=== PATIENT | male | born 1930 | race Caucasian/White ===

== ENCOUNTER 2018-04-10 19:37 | Inpatient (IN) | payer OTHER ==
[~2018-04-10] VITALS: Ht 188 cm; Wt 81.2 kg
--- NOTE | 2018-04-10 19:47 | ED GENERAL ADULT ---
History of Present Illness General Chief Complaint: Altered Mental Status Stated Complaint: ALTERED MENTAL STATUS Source: patient, family Exam Limitations: no limitations Vital Signs & Intake/Output Vital Signs & Intake/Output Vital Signs Date Time Temp Pulse Resp B/P B/P Pulse O2 O2 Flow FiO2 Mean Ox Delivery Rate 04/11 0857 98.3 80 20 108/58 98 Nasal 2.0L Cannula 04/11 0800 Nasal 2.0L Cannula 04/11 0413 Nasal 3.0L Cannula 04/11 0300 98.6 84 16 112/52 96 Nasal 2.0L Cannula 04/11 0057 98.3 84 16 110/53 96 Nasal 2.0L Cannula 04/11 0051 98.3 92 14 92/56 99 Nasal 2.0L Cannula 04/10 2340 98.1 04/10 2339 98.1 04/10 2229 105/60 04/10 2143 100.3 92 24 95/53 100 04/10 2051 101/55 04/10 2014 100.8 04/10 1941 100.8 119 22 106/65 90 ED Intake and Output 04/11 0000 04/10 1200 Intake Total 3100 Output Total Balance 3100 Intake, IV 3100 Patient 185 lb Weight Triage Nurses Notes Reviewed? yes Onset: Gradual Duration: week(s):, changing over time, continues in ED, getting worse Timing: recent history Injury Environment: home Severity: moderate, severe No Modifying Factors: none HPI: 87-year-old male history of atrial fibrillation, Parkinson's disease, presents for evaluation of altered mental status. According to the patient's son he has had a gradual decline in his physical and mental status. Over the past several months she has lost his ability to walk he spends most of his time in bed. He has become incontinent of urine and stool. He is also becoming gradually less responsive and has had a decrease in his ability to communicate. The son feels that currently the way he is behaving so he usually is. He spends most of his time sleeping and is very lethargic. He is not on blood thinners. He was brought in today because he developed a low-grade temp and seemed to be more lethargic than usual. Patient is lethargic and is unable to contribute much history but declines any pain. No recent surgery. 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 (Hank Durand) Allergies Coded Allergies: No Known Allergies (04/11/18) (Jered Munson DO) Past History Medical History Any Pertinent Medical History? see below for history Surgical History Surgical History: non-contributory Psychosocial History What is your primary language Kiswahili Family History Hx Contributory? No (Hank Durand) Review of Systems Review of Systems Constitutional: Reports: malaise, weakness. EENTM: Reports: no symptoms. Respiratory: Reports: no symptoms. Cardiovascular: Reports: no symptoms. GI: Reports: no symptoms. Genitourinary: Reports: no symptoms. Musculoskeletal: Reports: no symptoms. Skin: Reports: no symptoms. Neurological/Psychological: Reports: see HPI, weakness. Hematologic/Endocrine: Reports: no symptoms. Immunologic/Allergic: Reports: no symptoms. All Other Systems: Reviewed and Negative (Hank Durand) Physical Exam Physical Exam General Appearance: well developed/nourished, no apparent distress, alert, awake , lethargic Head: atraumatic, normal appearance Eyes: Bilateral: PERRL, EOMI, pale conjunctivae, other ([place] PUPILS ). Ears, Nose, Throat: normal pharynx, hearing grossly normal, DRY MUCOUS MEMBRANES Neck: normal inspection, supple, full range of motion Respiratory: normal breath sounds, chest non-tender, no respiratory distress, lungs clear Cardiovascular: normal peripheral pulses, tachycardia Peripheral Pulses: 2+ radial (R), 2+ radial (L) Gastrointestinal: normal bowel sounds, soft, non-tender, no organomegaly Rectal: tHERE IS AREAS OF ERYTHEMA AROUND THE GLUTEAL CLEFT. nO PRESSURE ULCERS OR OPEN SORES NO DISCHARGE OR FOCAL FLUCTUANT AREAS Back: normal inspection, normal range of motion Extremities: normal inspection, normal range of motion, no edema Neurologic/Psych: no motor/sensory deficits, awake, alert, PATIENT IS RESPONSIVE TO LOUD VERBAL STIMULI. hE IS ORIENTED TO PERSON ONLY Skin: intact, normal color, warm/dry Core Measures ACS in differential dx? No CVA/TIA Diagnosis: No Sepsis Present: No Sepsis Focused Exam Completed? No (Hank Durand) Progress Differential Diagnoses I considered the following diagnoses in my evaluation of the patient: [Sepsis, UTI, pneumonia, aspiration, dementia, dehydration, electrolyte abnormality, PE, malignancy] Plan of Care: Orders Procedure Date/time Status Nothing by Mouth 04/11 B Active PARTIAL THROMBOPLASTIN TIME 04/11 1900 Active BASIC ELECTROLYTES PLUS BUN&CR 04/11 1600 Active TROPONIN LEVEL 04/11 1200 Active EKG 04/11 1200 Active Change service to 04/11 0714 Active PARTIAL THROMBOPLASTIN TIME 04/11 0645 Complete CBC WITHOUT DIFFERENTIAL 04/11 0600 Complete BASIC ELECTROLYTES PLUS BUN&CR 04/11 0600 Complete Heparin Drip- AFIB/FLUTTER/PE/ 04/11 0541 Active ECHOCARDIOGRAM 04/11 0510 Active THYROID STIMULATING HORMONE 04/11 0500 Complete LIPID PANEL 04/11 0500 Complete Turn and Reposition 04/11 0439 Active Skin Integrity Protocol 04/11 0439 Active Skin/Pressure Ulcer Assess (Sk 04/11 0439 Active TROPONIN LEVEL 04/11 0428 Complete EKG 04/11 0428 Active Weight 04/11 0413 Active Teach/Educate 04/11 0413 Active Pain Treatment and Response 04/11 0413 Active Nutritional Intake, Monitor 04/11 0413 Active Isolation 04/11 0413 Active Patient Care Conference 04/11 0413 Active Activity/Ambulation 04/11 0413 Active SWALLOW EVALUATION 04/11 0253 Active PT Evaluate & Treat 04/11 0253 Active Saline Lock 04/11 0253 Active Pathway - chart 04/11 0253 Active House Staff 04/11 0253 Active Code Status 04/11 0253 Active CULTURE,URINE 04/11 0115 Active Lab Add-on Test 04/11 0114 Active Patient Data 04/11 0010 Active US-EXT BILAT VENOUS DOPPLER 04/11 UNK Active Change service to 04/11 UNK Active Lab Add-on Test 04/11 UNK Active VTE Mechanical Prophylaxis 04/11 UNK Active Vital Signs 04/11 UNK Complete Precautions 04/11 UNK Active Intake & Output 04/11 UNK Complete Patten, Insertion/Removal/Asses 04/11 UNK Complete SOCIAL WORK CONSULT 04/11 UNK Active Saline Lock 04/10 2353 Active Misc Message 04/10 2353 Active ED Holding Orders 04/10 2353 Active Admit to inpatient 04/10 2353 Active Vital Signs 04/10 2353 Active Code Status 04/10 2353 Complete Add-on Test (ER Only) 04/10 2146 Active URINE DRUGS OF ABUSE 04/10 2026 Complete EKG 04/10 2011 Active ARTERIAL BLOOD GAS (GEN) 04/10 2009 Complete Intake & Output 04/10 2006 Active BLOOD CULTURE 04/10 1957 Active ETHANOL 04/10 1950 Complete D-DIMER 04/10 1950 Complete Straight Cath 04/10 1946 Complete CULTURE,URINE 04/10 1946 Active Add-on Test (ER Only) 04/10 1945 Active URINALYSIS 04/10 1941 Complete TROPONIN LEVEL 04/10 1941 Complete PARTIAL THROMBOPLASTIN TIME 04/10 1941 Complete PROTHROMBIN TIME 04/10 1941 Complete MAGNESIUM 04/10 1941 Complete LIPASE 04/10 1941 Complete LACTIC ACID 04/10 1941 Complete COMPREHENSIVE METABOLIC PANEL 04/10 1941 Complete CBC WITHOUT DIFFERENTIAL 04/10 1941 Complete EKG 04/10 1941 Active Current Medications Sig/Lizandro Start time Last Medication Dose Stop Time Status Admin Potassium Chloride 10 MEQ Q1H 04/11 1115 AC 04/11 1216 Heparin Sodium 25,000 UNIT Q24H 04/10 2345 AC 04/11 (Porcine) 0047 (Heparin) Sodium Chloride 500 ML Potassium Chloride 0 .STK-MED ONE 04/10 2130 CAN (Klor) Potassium Chloride 20 MEQ ONCE ONE 04/10 2115 CAN (Klor) 04/10 2116 Laboratory Tests 04/11/18 0655: Anion Gap 9, Estimated GFR > 60, BUN/Creatinine Ratio 25.0, APTT 63 H, CBC w Diff NO MAN DIFF REQ, RBC 3.69 L, MCV 86.8, MCH 29.1, MCHC 33.5, RDW 13.6, MPV 9.0, Gran % 78.7 H, Lymphocytes % 13.1 L, Monocytes % 7.7, Eosinophils % 0.2, Basophils % 0.3, Absolute Granulocytes 6.9 H, Absolute Lymphocytes 1.1 L, Absolute Monocytes 0.7 H, Absolute Eosinophils 0, Absolute Basophils 0 04/11/18 0500: Troponin I 0.04, Triglycerides 71, Cholesterol 84, LDL Cholesterol, Calc 45 L, HDL Cholesterol 25 L, Cholesterol/HDL Ratio 3, TSH 2.070 04/10/182240: Lactic Acid Cancelled 04/10/182039: pH 7.51 H, pCO2 29 L, pO2 97, HCO3 23, ABG O2 Sat (Measured) 96.0, P-50 (Temp Corrected) Y, Carboxyhemoglobin 0.2 L, O2 Concentration % NC, Temperature 100.8 H, O2 Delivery Method 2L, Phlebotomy Draw Site RIGHT RADIAL 04/10/182025: Urine Opiates Screen < 100, Methadone Screen < 40, Barbiturate Screen < 60, Ur Phencyclidine Scrn < 6.00, Amphetamines Screen < 100, U Benzodiazepines Scrn < 85, Urine Cocaine Screen < 50, Urine Cannabis Screen < 5.00, Urine Color YEL, Urine Clarity CLEAR, Urine pH 6.0, Ur Specific [place] 1.015, Urine Protein NEG, Urine Ketones NEG, Urine Nitrite NEG, Urine Bilirubin NEG, Urine Urobilinogen 1.0, Ur Leukocyte Esterase NEG, Ur Microscopic SEDIMENT EXAMINED, Urine RBC RARE , Urine WBC RARE, Ur Epithelial Cells RARE, Urine Bacteria RARE H, Urine Mucus RARE, Urine Hemoglobin TRACE-INTACT H, Urine Glucose NEG 04/10/18 1950: Anion Gap 13, Estimated GFR > 60, BUN/Creatinine Ratio 24.0, Glucose 129 H, Lactic Acid 1.5, Calcium 8.5, Magnesium 1.9, Total Bilirubin 1.3, AST 14 L, ALT 16 L, Alkaline Phosphatase 108, Troponin I 0.04, Total Protein 5.8 L, Albumin 3.0 L, Globulin 2.8, Albumin/Globulin Ratio 1.1, Lipase 79, PT 13.4 H, INR 1.23 H, APTT 25, D-Dimer High Sensitivty 3135 H, CBC w Diff MAN DIFF ORDERED, RBC 4.07 L, MCV 85.2, MCH 29.1, MCHC 34.2, RDW 13.2, MPV 8.4, Gran % 85.1 H, Lymphocytes % 7.8 L, Monocytes % 6.8, Eosinophils % 0.2, Basophils % 0.1, Absolute Granulocytes 8.5 H, Segmented Neutrophils 84 H, Absolute Lymphocytes 0.8 L, Lymphocytes 9 L, Monocytes 5, Absolute Monocytes 0.7 H, Eosinophils 1, Absolute Eosinophils 0, Basophils 1, Absolute Basophils 0, Platelet Estimate ADEQUATE, Normocytic RBCs VERIFIED, Normochromic RBCs VERIFIED, Serum Alcohol < 10.0 Microbiology 04/11 133 URINE ROUT: Urine Culture - RECD 04/10 2026 URINE ROUT: Urine Culture - RES 04/10 2005 BLOOD: Blood Culture - RECD 04/10 1955 BLOOD: Blood Culture - RECD Patient is here for evaluation of altered mental status is gradually becoming more lethargic and unresponsive. He has been gradually declining over the past several months 2 weeks he no longer walks he spends most of his time in bed. He reports he his not being able to communicate much. Patient is oriented to person only. He is responsive to loud verbal stimuli. He declines pain. He has dry mucous membranes she is tachycardic he has a low-grade temp his blood pressure is borderline low. Fluids ordered IV Tylenol ordered labs culture is head CT ordered. Blood work shows a potassium of 3.1 IV potassium ordered. D-dimer is significantly elevated as well. A CTA of the chest, pelvis was ordered. ABG was ordered did not show any significant hypercarbia. Due to patient's pinpoint pupils and lethargy Narcan was administered without any effect. CT reveals multiple PEs without right heart strain. Patient will be heparinized and admitted to the hospital. His blood pressure has been hovering around the low 100s to 90s systolic additional fluids ordered. 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 Patient will be admitted to the hospital for further evaluation and treatment of multiple bilateral PEs. He'll require serial labs serial EKGs telemetry follow- up cultures IV heparin cardiology consult. Diagnostic Imaging: Viewed by Me: Radiology Read. Discussed w/RAD: Radiology Read. CXR Impression: PATIENT: MAURA GRAYSON PRESENT AGE: 87 PATIENT ACCOUNT NO: [id number] : [birth year] LOCATION: [facility] ORDERING PHYSICIAN: Hank SANTIAGO SERVICE DATE: 04/10/18 EXAM TYPE: RAD - XRY-PORTABLE CHEST XRAY EXAMINATION: XR PORTABLE CHEST CLINICAL INFORMATION: Pneumonia. Altered mental status. COMPARISON: CT chest dated 03/22/2018 TECHNIQUE: AP portable upright view of the chest FINDINGS: Mild bibasilar atelectasis. Lung volumes are low. No focal consolidation. No appreciable pneumothorax or pleural effusion. Calcific atherosclerosis is present in the thoracic aorta. Heart is normal in size. Bones are osteopenic. There is multilevel degenerative disc disease in the thoracic spine. IMPRESSION: Low lung volumes with mild bibasilar atelectasis. DICTATED BY: Sha Hoffmann MD DATE/TIME DICTATED:04/10/182055 CRIMINAL LAWYER:JESSICA DATE/TIME TRANSCRIBED:04/10/182055 CONFIDENTIAL, DO NOT COPY WITHOUT APPROPRIATE AUTHORIZATION. Initial ED EKG: AFIB RATE 1-TEENS Rhythm Strip: atrial fibrillation (RATE 115) (Hank Durand) Departure Departure Disposition: STILL A PATIENT Condition: Stable Clinical Impression Primary Impression: Pulmonary embolism Qualifiers: Pulmonary embolism type: other Chronicity: acute Acute cor pulmonale presence: without acute cor pulmonale Qualified Code: I26.99 - Other pulmonary embolism without acute cor pulmonale Referrals: Daniel Dumont MD (PCP/Family) Departure Forms: Customer Survey General Discharge Information Admission Note Spoke With: Zelda Barlow MD Documentation of Exam: Documentation of any treatments & extenuating circumstances including Concerns Regarding Discharge (functional status, medication knowledge or non-compliance, living conditions, etc.) that warrant an admission rather than observation: [ Cardiology, echocardiogram, serial labs, telemetry, serial EKGs, heparin, hypercoagulability workup] (Hank Durand) PA/IT SOLUTIONS ARCHITECT Co-Sign Statement Statement: ED Attending supervision documentation- [X] I saw and evaluated the patient. I have also reviewed all the pertinent lab results and diagnostic results. I agree with the findings and the plan of care as documented in the PA's/IT SOLUTIONS ARCHITECT's documentation. [] I have reviewed the ED Record and agree with the PA's/IT SOLUTIONS ARCHITECT's documentation. [] Additions or exceptions (if any) to the PAs/IT SOLUTIONS ARCHITECT's note and plan are summarized below: [] I saw and personally evaluated the patient. He responds to verbal communication. He has had a progressive deterioration in his baseline functioning according to the family. History of blood clots, A. fib, was not placed on any coagulation according to the family because of bleeding rest due to frequent falls. (Jered Munson DO) Critical Care Note Critical Care Note Critical Care Time: 75-104 min (Hank Durand)
[2018-04-10 20:22] LABS: ABSOLUTE BASOPHIL COUNT 0 /CUMM (0.0-0.2); ABSOLUTE EOSINOPHIL COUNT 0 /CUMM (0.0-0.7); ABSOLUTE GRANULOCYTE CT 8.5 /CUMM (1.4-6.5); ABSOLUTE LYMPH COUNT 0.8 /CUMM (1.2-3.4); ABSOLUTE MONOCYTE COUNT 0.7 /CUMM (0.10-0.60); BASOPHIL % 0.1 % (0.0-2.0); EOSINOPHIL % 0.2 % (0-5); GRANULOCYTE % 85.1 % (42.2-75.2); HEMATOCRIT 34.6 % (42-52); MEAN CORPUSCULAR HGB 29.1 PG (27.0-31.0); MEAN CORPUSCULAR HGB CONC 34.2 G/DL (33.0-37.0); MEAN CORPUSCULAR VOLUME 85.2 FL (80.0-94.0); MEAN PLATELET VOLUME 8.4 FL (7.4-10.4); PLATELET COUNT 249 /CUMM (130-400); RBC DISTRIBUTION WIDTH 13.2 % (11.5-14.5); RED BLOOD CELL CT 4.07 /CUMM (4.70-6.10); WHITE BLOOD CELL COUNT 9.9 /CUMM (4.8-10.8)
[2018-04-10 20:27] LABS: PT 13.4 SEC (9.4-12.5); PTT 25 SEC (25-37)
--- NOTE | 2018-04-10 21:01 | RADIOLOGY REPORT ---
EXAMINATION: XR PORTABLE CHEST CLINICAL INFORMATION: Pneumonia. Altered mental status. COMPARISON: CT chest dated 03/22/2018 TECHNIQUE: AP portable upright view of the chest FINDINGS: Mild bibasilar atelectasis. Lung volumes are low. No focal consolidation. No appreciable pneumothorax or pleural effusion. Calcific atherosclerosis is present in the thoracic aorta. Heart is normal in size. Bones are osteopenic. There is multilevel degenerative disc disease in the thoracic spine. IMPRESSION: Low lung volumes with mild bibasilar atelectasis.
--- NOTE | 2018-04-10 21:43 | CT SCAN REPORT ---
EXAMINATION: CT HEAD WITHOUT CONTRAST CLINICAL INFORMATION: Intracranial hemorrhage, mass, altered mental status COMPARISON: None TECHNIQUE: Contiguous axial imaging was performed from the skull base to vertex without intravenous administration of contrast. DLP: 621 mGy-cm FINDINGS: There is no evidence of acute intracranial hemorrhage or territorial infarction. No abnormal mass effect or midline shift is seen. Ramos to white matter differentiation is well preserved. No extra-axial fluid collections are identified. There is symmetric concordant prominence of the ventricles and sulci consistent with age-appropriate diffuse parenchymal volume loss.. There is periventricular and subcortical white matter hypodensity, most notable in the right centrum semiovale. Ramos-white differentiation is maintained without evidence of acute large vessel territory ischemia. There are postoperative changes of both globes. The osseous structures and soft tissues are normal. The mastoid air cells and visualized portions of the paranasal sinuses are well aerated. IMPRESSION: No acute intracranial pathology.
--- NOTE | 2018-04-10 23:20 | CT SCAN REPORT ---
EXAMINATION: CT ANGIOGRAM OF THE CHEST WITH AND WITHOUT CONTRAST (CT PULMONARY ANGIOGRAM FOR PE) CT ABDOMEN AND PELVIS WITH CONTRAST CLINICAL INFORMATION: Tachycardia. Hypoxia. Fever. Hypotension. COMPARISON: 03/22/2018. TECHNIQUE: Prior to contrast administration, noncontrast localization images were obtained. Subsequently, multidetector volumetric imaging was performed from the thoracic inlet to below the diaphragms following the administration of 95 mL Optiray 320 intravenous contrast. This was followed by multidetector acquisition of the abdomen and pelvis. No contrast reaction reported Sagittal, coronal, and MIP oblique sagittal reformatted images were obtained on the CT workstation, uploaded to PACS, and reviewed. Total exam dose-length product 1974 mGy-cm FINDINGS: QUALITY OF STUDY/CONTRAST BOLUS: While the contrast timing is satisfactory, there is significant motion on the study which limits the evaluation. PULMONARY ARTERIES: Although motion limited significantly, there is evidence of multiple pulmonary emboli. For instance, there is a left upper lobe segmental embolism seen on series 2 image 197. Probable left lower lobe segmental filling defects. Right upper lobe segmental and subsegmental filling defects are noted, series 2 image 183. Right middle lobe segmental filling defects seen, series 2 image 256. Right lower lobe segmental filling defect on series 2 image 267. THORACIC AORTA: No aneurysm or dissection. LUNG: The central airways are patent. There is secretion noted in the right mainstem bronchus, increased from prior. Dependent atelectasis bilaterally. No dense consolidation. No suspicious pulmonary nodules. PLEURA: No pleural effusion or pneumothorax. MEDIASTINUM: The heart is normal in size. Nonspecific area of hypoattenuation along the periphery of the left atrium, measuring 1.9 cm. This may been present on the prior study, although not well-defined secondary to lack of contrast on that study. This is of uncertain etiology. No pericardial effusion. No definite mediastinal lymphadenopathy. No evidence of septal bowing or right heart strain. CHEST WALL/AXILLA: Redemonstration of the right axillary mass, which may represent a prominently enlarged lymph node. This measures 7.2 x 6.5 cm, appearing similar to prior. Adjacent smaller lymph nodes present, without pathologic enlargement. Prominent stranding of the associated fat. LIVER, GALLBLADDER, AND BILIARY TREE: The liver is normal in size, shape, and attenuation. No focal hepatic lesion or biliary ductal dilatation is present. The gallbladder is unremarkable with no evidence of radiopaque gallstones, gallbladder wall thickening, or obvious pericholecystic inflammatory changes. PANCREAS: Unremarkable. SPLEEN: Unremarkable. ADRENAL GLANDS: There is a 0.9 cm indeterminate right adrenal gland nodule. The left adrenal gland is unremarkable. KIDNEYS AND URETERS: The kidneys are normal in size, shape, and attenuation. No hydronephrosis, hydroureter, or calculi seen. No perinephric stranding. Bilateral renal cysts. BLADDER: Unremarkable. GASTROINTESTINAL TRACT: The stomach is unremarkable. The small bowel is normal in caliber. There is no obstruction. There is colonic diverticulosis present. There is a prominently cystic structure along the proximal sigmoid colon with peripheral enhancement, and mild adjacent inflammation. This is a nonspecific finding, but could be neoplastic in nature. Additional similar lesion noted in the right lower quadrant fat, measuring 1.7 x 2 cm on series 3 image 67. There is also a 1.5 cm lesion more superiorly along the anterior abdominal wall. Smaller nodules seen in the anterior right pararenal space measuring 0.9 cm. Additional left lower quadrant nodule measuring 1.8 cm on series 9 image 458. ABDOMINAL WALL: There is no significant hernia. Within the left psoas muscle, there is an irregular hypoattenuating lesion with peripheral enhancement measuring 2 cm. This has similar characteristics to the lesion along the proximal sigmoid colon. LYMPH NODES: No retroperitoneal lymphadenopathy. VASCULAR: Unremarkable. PELVIC VISCERA: Prostatomegaly. The prostate measures 5.5 cm transverse. The seminal vesicles are unremarkable. OSSEOUS STRUCTURES: No acute or suspicious osseous abnormality. Degenerative changes of the spine. IMPRESSION: 1. Diffuse pulmonary emboli. No evidence of elevated right heart pressures. 2. Redemonstration of the prominent right axillary mass, possibly representing a conglomerate of lymph nodes. 3. 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 This involves a lesion within the left psoas muscle and the lesion along the left sigmoid colon with prominent adjacent stranding. 4. Indeterminate 0.9 cm right adrenal gland nodule. 5. Area of hypoattenuation noted along the periphery of the left atrium at the heart, nonspecific in nature. Thrombus is possible. This could be evaluated with echocardiography. This critical result was discussed with Hank Lezama by telephone at 04/10/2018 11:11 PM and it was ascertained that the content and urgency of the report was understood at the time of direct communication. VTE: positive
--- NOTE | 2018-04-11 00:49 | History & Physical ---
CelestinoAlexander 04/11/18 0049: General Information and HPI History of Present Illness: Neo Alexandra is a 87 YO male with a PMHx of Parkinson's disease, HTN, and pAfib who presented to the ED with a chief concern of "altered mental status." According to the EMS and triage nurses, the son, who the patient lives with, indicated that his father was not acting appropriately and was concerned about his current condition. The patient has two other sons who indicate that their father has been on a steady decline over the past few weeks, and he has been mostly resolved to sleeping throughout the day. Patient is also reported to have increasing weight loss and decreased appetite and energy. Patient also has had difficulty with walking, notably resulting in a few falls. Patient also is noted to have a right axillary mass, for which a subsequent biopsy had been scheduled to be performed outpatient with his PCP. Patient has been seen by Dr. Graf who diagnosed the patient with pAfib approximately 3 weeks prior to presentation. Patient follows Dr. Daniel Dumont (PCP). Allergies/Medications Allergies: Uncoded Allergies: Allergy Other N Med Allergies N Past History Travel History Traveled to [place] past 21 day No Medical History Neurological: Parkinson's disease Cardiovascular: AFIB Surgical History Surgical History: unobtainable Past Family/Social History Psychosocial History Who Do You Live With? child (SON) ETOH Use: 6 Illicit Drug Use: UTD Review of Systems Review of Systems Constitutional: Reports: malaise, weakness, unexplained weight loss. Cardiovascular: Denies: chest pain. Respiratory: Denies: short of breath. GI: Denies: abdominal pain, constipation. Genitourinary: Denies: dysuria. Musculoskeletal: Denies: joint pain, joint swelling. Skin: Denies: no symptoms. Exam & Diagnostic Data Last 24 Hrs of Vital Signs/I&O Vital Signs Date Time Temp Pulse Resp B/P B/P Pulse O2 O2 Flow FiO2 Mean Ox Delivery Rate 04/11 0413 Nasal 3.0L Cannula 04/11 57 98.3 84 16 110/53 96 Nasal 2.0L Cannula 04/11 005 98.3 92 14 92/56 99 Nasal 2.0L Cannula 04/10 2340 98.1 04/10 2339 98.1 04/10 2229 105/60 04/10 2143 100.3 92 24 95/53 100 04/10 2051 101/55 04/10 2014 100.8 04/10 194 100.8 119 22 106/65 90 Intake & Output 04/11 0800 04/11 0000 04/10 1600 Intake Total 3100 Output Total Balance 3100 Intake, IV 3100 Patient 171 lb 185 lb Weight Weight Bed scale Measurement Method Physical Exam General Appearance No Acute Distress, SOMNOLENT, BUT MORE ALERT FURTHER INTO EXAM Skin No Rashes, COCCYGEAL WOUNDS HEENT Atraumatic, PERRLA Neck Supple, No JVD Lymphatic RIGHT AXILLARY MASS Cardiovascular Regular Rate, Normal S1, Normal S2 Lungs Clear to Auscultation Abdomen Normal Bowel Sounds, Soft, No Tenderness Neurological Normal Tone, Sensation Intact Extremities No Cyanosis, No Edema, Normal Pulses Assessment/Plan Assessment: Chest CTA: 1. Diffuse pulmonary emboli. No evidence of elevated right heart pressures. 2. Redemonstration of the prominent right axillary mass, possibly representing a conglomerate of lymph nodes. 3. 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 This involves a lesion within the left psoas muscle and the lesion along the left sigmoid colon with prominent adjacent stranding. D-Dimer: 3135 Assessment: 1. Pulmonary Embolism 2. Encephalopathy, Acute 3. h/o Parkinson's disease 4. h/o pAfib 5. h/o HTN Plan: * Pulmonary Embolism - Admit to telemetry for cardiac monitoring and assessment of vitals - Anticoagulation via Heparin IV q24h - AM Procedure for V/Q scan - AM ECHO; upon recommendation of cardiology consultation - ABG (respiratory alkalosis); follow up ABG to reassess - Oxygen therapy to maintain saturation > 92% via NC or face mask - NPO; Swallow Evaluation in AM - DVT PPx. * Acute Encephalopathy - Acute, fluctuating change in mental status and altered level of awareness - U. Analysis and U. Toxicology is WNL - CBC follow up to reassess - Follow up with Social Work Consult as patient's living situation is not conducive to proper health maintanence As Ranked By This Provider Problem List: 1. Pulmonary embolism Qualifiers Pulmonary embolism type: other Chronicity: acute Acute cor pulmonale presence: without acute cor pulmonale Qualified Code: I26.99 - Other pulmonary embolism without acute cor pulmonale 2. Altered mental state Core Measures/Misc (06/18) Acute Coronary Syndrome ACS Diagnosis: No Congestive Heart Failure Congestive Heart Failure Diagnosis No Cerebrovascular Accident CVA/TIA Diagnosis: No VTE (View Protocol) VTE Risk Factors Acute Medical Illness No Mechanical VTE Prophylaxis d/t N/A MechProphylax Ordered No VTE Pharm Prophylaxis d/t NA PharmProphylax ordered Sepsis (View protocol) Sepsis Present: No If YES complete Sepsis Event Note If YES complete Sepsis Event Note Zelda Barlow MD 04/11/18 0106: Core Measures/Misc (06/18) Sepsis (View protocol) If YES complete Sepsis Event Note If YES complete Sepsis Event Note Attending MD Review Statement Attending Statement Attending MD Statement: examined this patient, discuss w/resident/PA/REGISTERED RADIATION THERAPIST, agreed w/resident/PA/REGISTERED RADIATION THERAPIST, reviewed EMR data (avail) Attending Assessment/Plan: 87M no significant PMH, primarily Sierra [place]an speaking, brought in by family for deterioration at home over the past few weeks/months. Per family, patient stays primarily in bed, has been becoming more week, unable to care for himself, no good support system at home. Patient is lethargic and has no complaints. He has a stage 1 sacral decubitus ulcer present, and appears dehydrated on exam, with a normal cardiopulmonary exam. Labs reveal hypokalemia and dehydration, CTA chest shows bilateral pulmonary emboli. Mildly febrile 100.3, initially tachycardic and borderline hypotensive but improved with fluids. 1. Acute bilateral pulmonary embolism without cor pulmonale 2. Chest wall mass 3. Lethargy 4. Stage 1 sacral pressure ulcer 5. Dehydration 6. Hypokalemia 7. Mild protein calorie malnutrition Plan: Heparin drip, echocardiogram, blood and urine cultures, hold antibiotics for now, hydrate, replete electrolytes, social work consult, obtain records from PCP. Agustin Espinal 04/11/18 0457: Core Measures/Misc (06/18) Sepsis (View protocol) If YES complete Sepsis Event Note If YES complete Sepsis Event Note Resident Review Statement Resident Statement: examined this patient, discussed with international marketing coordinator Other Findings: Mr Alexandra is a 87 year old man w/ a PMHx Parkinson's disease, hypertension, paroxysmal atrial fibrillation(diagnosed 3 weeks ago), right axillary mass was brought to the hospital with a chief concern of altered mental status. As per the EMS, the son who is the primary caregiver called EMS stating that he was not acting right. The patient was found in lying naked in urine. The history was obtained from the patient's son Irwin who is the POA ), who stated that Mr Alexandra has been increasingly lethargic in the last few months. He was recently diagnosed with having right axillary mass, for which biopsy was planned soon by his primary care physician-Dr. Dumont. Reported to have increasing weight loss and decreased appetite. He lives with his son, who reported multiple falls in the last month. Also reported to have difficulty ambulating lately. He was evaluated by Dr. Graf 3 weeks ago, and was found to have paroxysmal atrial fibrillation. Given his age and multiple falls, anticoagulation was not started. He was also noted to to be persistently hypotensive. He was also found to be increasingly somnolent. At the time of admission-temperature 100.8, pulse rate 119, respiration 22, blood pressure 106/65, pulse ox 90%. General Exam: somnolent, but became more alert during the exam, oriented to place and person, No acute distress, Skin: No rashes, wounds on the coccyx and right knee, HEENT: PERRLA, EOMI;Neck: Supple, No JVD;No cervical lymphadenopathy, right axillary mass 10cmx 7cm, firm, no erytema or tenderness; CVS: Reg Rate, Normal S1,S2, systolic murmur;Resp: Normal air entry, no ronchi/ rales;Abdomen: Soft, No tenderness, Normal Bowel Sounds;Neuro: Normal Speech, Strength 5/5 b/l x 4 extremities, Sensation intact, CN III-XII NL, Reflexes 2+; Extremities: No cyanosis, no pedal edema. Pertinent lab findings- WBC 9.9 (85.1 granulocytes), hemoglobin 11.8, platelet count 249. Sodium 142, potassium 3.1, chloride 103, bicarbonate 26 BUN 24, creatinine 1.0. Lactic acid 1.5 AST 14, ALT 16, alkaline phosphatase 108., Albumin 3.0. Troponin I of 0.04. Urinalysis clear. D-dimer 3135, INR 1.3. ABG revealed pH 7.51, PCO2 29, oxygen 97%. CTA- 1. Diffuse pulmonary emboli. No evidence of elevated right heart pressures.2.Redemonstration of the prominent right axillary mass, possiblyrepresenting a conglomerate of lymph nodes.3. Multiple additional nodules are identified throughout the abdomen andpelvis, likely metastatic lesions with central necrosis. This involves alesion within the left psoas muscle and the lesion along the left sigmoidcolon with prominent adjacent stranding.4. Indeterminate 0.9 cm right adrenal gland nodule. 5. Area of hypoattenuation noted along the periphery of the left atrium atthe heart, nonspecific in nature. Thrombus is possible. This could beevaluated with echocardiography. CT HEAD WO IV CONTRAST -No acute intracranial pathology. XRY-PORTABLE CHEST XRAY- Low lung volumes with mild bibasilar atelectasis. Etiology in this case with risk factors and possible malignancy, age greater than 50 years possibly immobility with is likely pulmonary embolism. He also has right axillary mass, and multiple masses in the abdomen likely representing lymphoma which needs to be investigated. He also has fever, without any clear source of infection. Appears dry, and would need iv hydration. In regards to his Afib, w/ possible thrombus should be monitored closely. In regards to his AMS could be multifactorial including dehydration, PE, and infection. Aspiration should be kept in differentials. Problem list: 1. AMS secondary to dehydration 2. pAfib 3. Multiple PEs 4. 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 HL stage IV) 5. Incidentaloma, if this is indeed adrenal. R/o malignancy. Plan: admit the patient for PE for continued anticoagulation and monitoring EKG although nonspecific look for sinus tachycardia, left axis deviation. Serial cardiac enzymes, electrocardiograms ABG reveals respiratory alkalosis, but no hypoxemia. Check lower extremity duplex ultrasound. Check echocardiogram to assess right heart strain, although CT scan reveals no right heart strain. TRC, assess the need for supplemental oxygen Cautious use of iv fluids since excessive fluid expansion can worsen heart failure. Consider IV vasopressor therapy hypotensive Anticoagulation with unfractionated heparin to maintain the goal PTT time between 1.5-2.5X a control value. Discuss about AC with the load dispatcher given his new finding of possible thrombus which needs to be evaluated. Plan for thrombolysis if the patient becomes hemodynamically unstable, or stable with severe hypoxemia, or severe right ventricle dysfunction. LRC culture, Blood cultures. If he has any more fever, should conside abx. Please confirm his meds mainly his levo-dopa from his PCP Dr. Dumont as soon as possible. Discuss w/ the IR, if a biopsy could be done while inhouse. Pt is DNR/DNI as per the POA.
[2018-04-11 03:00] VITALS: BP 112/52
--- NOTE | 2018-04-11 03:12 | Admission Certification ---
Admission Certification Certification Statement - As attending physician, I certify that at the time of - admission, based on clinical presentation, severity of - symptoms, need for further diagnostic testing and - therapeutic interventions, and risk of adverse outcomes - without in-hospital treatment, in my clinical assessment, - this patient requires an acute hospital stay for a minimum - of two nights or longer. I have also considered psychsocial - factors such as support system, advanced age, financial - issues, cognitive issues, and failed out-patient treatments, - past re-admission history, safety of patient, and lack of - compliance as applicable. Specific rationale supporting this admission is: bilateral pulmonary embolism with lethargy
--- NOTE | 2018-04-11 06:57 | PN- Housestaff ---
Jose Raul Mcmillan 04/11/18 0657: Subjective Follow-up For: Altered mental status Subjective: Patient is with altered mental status. Oriented to person and place, but unable to provide full history. Attempting to obtain history from patient son's and medical record. Currently reports no complaints, is on 2 L oxygen via nasal cannula. Review of Systems Constitutional: Denies: chills, diaphoresis. Cardiovascular: Reports: peripheral edema. Denies: chest pain, palpitations. Respiratory: Denies: cough. Gastrointestinal: Denies: abdominal pain, vomiting. Objective Last 24 Hrs of Vital Signs/I&O Vital Signs Date Time Temp Pulse Resp B/P B/P Pulse O2 O2 Flow FiO2 Mean Ox Delivery Rate 04/11 0413 Nasal 3.0L Cannula 04/11 005 98.3 84 16 110/53 96 Nasal 2.0L Cannula 04/11 0051 98.3 92 14 92/56 99 Nasal 2.0L Cannula 04/10 2340 98.1 04/10 2339 98.1 04/10 2229 105/60 04/10 2143 100.3 92 24 95/53 100 04/10 2051 101/55 04/10 2014 100.8 04/10 1941 100.8 119 22 106/65 90 Intake & Output 04/11 0800 04/11 0000 04/10 1600 Intake Total 3100 Output Total Balance 3100 Intake, IV 3100 Patient 77.649 kg 83.915 kg Weight Weight Bed scale Measurement Method Physical Exam General Appearance: No Acute Distress, Arousable, and oriented to person & place HEENT: Pupils constricted bilaterally Lymphatic: Axillary nl (Large mass R axilla) Cardiovascular: Regular Rate, Normal S1, Normal S2 Abdomen: Soft, No Tenderness Neurological: Weakness in all extremities Extremities: Bilateral pressure ulcers on heels, Soft tissue mass in the right axilla Current Medications: Current Medications Sig/Lizandro Start time Last Medication Dose Route Stop Time Status Admin Acetaminophen 0 .STK-MED ONE 04/10 2011 DC IV Acetaminophen 1,000 MG ONCE ONE 04/10 1945 DC 04/10 N/A 1 UNIT IV 04/10 Heparin Sodium 0 .STK-MED ONE 04/11 0032 DC (Porcine) .ROUTE Heparin Sodium 5,000 UNIT ONCE ONE 04/10 2345 DC 04/11 (Porcine) IV 07/10 2346 0047 Heparin Sodium 25,000 UNIT Q24H 04/10 2345 AC 04/11 (Porcine) IV 0047 Sodium Chloride 500 ML Naloxone HCl 0.4 MG ONCE ONE 04/11 0115 DC 04/11 IV 04/11 0116 0119 Naloxone HCl 0 .STK-MED ONE 04/11 0115 DC .ROUTE Naloxone HCl 0.4 MG ONCE ONE 04/11 0100 DC 04/11 IV 04/11 0101 0056 Naloxone HCl 0 .STK-MED ONE 04/11 0053 DC .ROUTE Potassium Chloride 10 MEQ ONCE ONE 04/10 214 DC 04/10 IV 04/10 214 214 Potassium Chloride 0 .STK-MED ONE 04/10 2130 CAN PO Potassium Chloride 20 MEQ ONCE ONE 04/10 2115 CAN PO 04/10 211 Sodium Chloride 1,000 ML BOLUS ONE 04/11 0245 DC 04/11 IV 04/11 0444 0340 Sodium Chloride 1,000 ML BOLUS ONE 04/11 0115 DC 04/11 IV 04/11 0314 0123 Sodium Chloride 1,000 ML BOLUS ONE 04/10 214 DC 04/10 IV 04/10 224 214 Sodium Chloride 1,000 ML BOLUS ONE 04/10 1945 DC 04/10 IV 04/10 Last 24 Hrs of Lab/Angelo Results Last 24 Hrs of Labs/Mics: Laboratory Tests 04/11/18 0500: Troponin I 0.04 04/10/182240: Lactic Acid Cancelled 04/10/182039: pH 7.51 H, pCO2 29 L, pO2 97, HCO3 23, ABG O2 Sat (Measured) 96.0, P-50 (Temp Corrected) Y, Carboxyhemoglobin 0.2 L, O2 Concentration % NC, Temperature 100.8 H, O2 Delivery Method 2L, Phlebotomy Draw Site RIGHT RADIAL 04/10/182025: Urine Opiates Screen < 100, Methadone Screen < 40, Barbiturate Screen < 60, Ur Phencyclidine Scrn < 6.00, Amphetamines Screen < 100, U Benzodiazepines Scrn < 85, Urine Cocaine Screen < 50, Urine Cannabis Screen < 5.00, Urine Color YEL, Urine Clarity CLEAR, Urine pH 6.0, Ur Specific [place] 1.015, Urine Protein NEG, Urine Ketones NEG, Urine Nitrite NEG, Urine Bilirubin NEG, Urine Urobilinogen 1.0, Ur Leukocyte Esterase NEG, Ur Microscopic SEDIMENT EXAMINED, Urine RBC RARE , Urine WBC RARE, Ur Epithelial Cells RARE, Urine Bacteria RARE H, Urine Mucus RARE, Urine Hemoglobin TRACE-INTACT H, Urine Glucose NEG 04/10/18 1950: Anion Gap 13, Estimated GFR > 60, BUN/Creatinine Ratio 24.0, Glucose 129 H, Lactic Acid 1.5, Calcium 8.5, Magnesium 1.9, Total Bilirubin 1.3, AST 14 L, ALT 16 L, Alkaline Phosphatase 108, Troponin I 0.04, Total Protein 5.8 L, Albumin 3.0 L, Globulin 2.8, Albumin/Globulin Ratio 1.1, Lipase 79, PT 13.4 H, INR 1.23 H, APTT 25, D-Dimer High Sensitivty 3135 H, CBC w Diff MAN DIFF ORDERED, RBC 4.07 L, MCV 85.2, MCH 29.1, MCHC 34.2, RDW 13.2, MPV 8.4, Gran % 85.1 H, Lymphocytes % 7.8 L, Monocytes % 6.8, Eosinophils % 0.2, Basophils % 0.1, Absolute Granulocytes 8.5 H, Segmented Neutrophils 84 H, Absolute Lymphocytes 0.8 L, Lymphocytes 9 L, Monocytes 5, Absolute Monocytes 0.7 H, Eosinophils 1, Absolute Eosinophils 0, Basophils 1, Absolute Basophils 0, Platelet Estimate ADEQUATE, Normocytic RBCs VERIFIED, Normochromic RBCs VERIFIED, Serum Alcohol < 10.0 Microbiology 04/11 133 URINE ROUT: Urine Culture - RECD 04/10 2026 URINE ROUT: Urine Culture - RECD 04/10 2005 BLOOD: Blood Culture - RECD 04/10 1955 BLOOD: Blood Culture - RECD Assessment/Plan Assessment: Patient is an 79-year-old male with history of Parkinson's disease, axillary mass concerning for malignancy, presenting with shortness of breath and altered mental status/unresponsiveness found to have bilateral pulmonary emboli, diffusely throughout the lungs. 1. Pulmonary emboli calf veins 2. DVTs 3. Altered mental status 4. Axillary mass concerning for malignancy abdomen and pelvis possibly representing malignancy 5. Hypokalemia 6. Sacral and heel wounds (present on admission) Problem List: 1. Pulmonary embolism 2. Altered mental state 3. Parkinson disease 4. Axillary mass 5. DVT (deep venous thrombosis) 6. Hypokalemia Pain Ratin Pain Location: None Pain Goal: Pain 4 or less Pain Plan: Call MD Tomorrow's Labs & Rationales: CBC, VILLA Calixto MD,Saad 04/11/18 1419: Attending MD Review Statement Attending Statement Attending MD Statement: examined this patient, discuss w/resident/PA/DIRECTOR OF RECREATION THERAPY, agreed w/resident/PA/DIRECTOR OF RECREATION THERAPY, reviewed EMR data (avail), discussed with nursing, discussed with case mgmt, amended to note Attending Assessment/Plan: Patient seen and examined. Lying in bed. Does not appear to be acutely ill. He is lethargic. Oriented to place and person. Confused about the year. He is able to follow simple commands although very slowly. Complains of pain in the right shoulder which is chronic for him. He has right axillary mass. We have been unable to contact his power of aerospace engineer officer armament. We did contact 1 of his sons who however was unable to provide any reasonable history. His primary care provider is currently not available. On examination this chronically ill looking, frail, not in respiratory distress. Heart sounds are regular. Diminished breath sounds bilaterally but with no added sounds. Right axillary mass present nontender no erythema firm to touch. No peripheral edema bilaterally. He does have stage I ulcerations of both heels. Problems: 1. Bilateral pulmonary embolism. 2. Bilateral lower extremity deep vein thrombosis 3. Questionable thrombosis in the left atrium 4. 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 5. Cognitive deficit; query chronicity. 6. Fever 7. Hypokalemia 8. Anemia 9. Atrial fibrillation 10. Bilateral heel ulcerations. Plan: -Continue anticoagulation therapy with IV heparin. -Prior to transitioning to oral anticoagulation therapy obtain details from family and PCP regarding why patient is not on chronic anticoagulant therapy for his atrial fibrillation. -Currently requiring minimal oxygen supplementation blood pressure however is borderline. Baseline blood pressure is unknown in this elderly patient. -Follow up echo for further evaluation of his ? atrial thrombus. -Supplement potassium orally. Repeat serum chemistry today. -Check stool guaiac. Repeat H&H in a.m. -In view of the diffuse metastatic cancer and they refused venous thromboembolic disease, recommend palliative care consultation with the patient and family.
[2018-04-11 07:28] LABS: PTT 63 SEC (25-37)
[2018-04-11 08:43] LABS: ABSOLUTE BASOPHIL COUNT 0 /CUMM (0.0-0.2); ABSOLUTE EOSINOPHIL COUNT 0 /CUMM (0.0-0.7); ABSOLUTE GRANULOCYTE CT 6.9 /CUMM (1.4-6.5); ABSOLUTE LYMPH COUNT 1.1 /CUMM (1.2-3.4); ABSOLUTE MONOCYTE COUNT 0.7 /CUMM (0.10-0.60); BASOPHIL % 0.3 % (0.0-2.0); EOSINOPHIL % 0.2 % (0-5); GRANULOCYTE % 78.7 % (42.2-75.2); MEAN CORPUSCULAR HGB 29.1 PG (27.0-31.0); MEAN CORPUSCULAR HGB CONC 33.5 G/DL (33.0-37.0); MEAN CORPUSCULAR VOLUME 86.8 FL (80.0-94.0); PLATELET COUNT 222 /CUMM (130-400); RBC DISTRIBUTION WIDTH 13.6 % (11.5-14.5); RED BLOOD CELL CT 3.69 /CUMM (4.70-6.10); WHITE BLOOD CELL COUNT 8.7 /CUMM (4.8-10.8)
[2018-04-11 08:57] VITALS: BP 108/58
--- NOTE | 2018-04-11 11:51 | ULTRASOUND REPORT ---
EXAMINATION: BILATERAL LOWER EXTREMITY DEEP VENOUS ULTRASOUND CLINICAL INFORMATION: Bilateral pulmonary embolus. Lower extremity edema. COMPARISON: Chest CTA 04/10/2018 TECHNIQUE: Duplex Doppler imaging with compression maneuvers were performed of the bilateral lower extremity deep venous systems. FINDINGS: The bilateral visualized common femoral, femoral and popliteal veins demonstrate normal compressibility and color flow without evidence of venous thrombosis. Both the right and left peroneal veins are not possible and demonstrate no color flow consistent with venous thrombosis. 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 There is no evidence of a right Espinosa's cyst. IMPRESSION: 1. DVT within the bilateral peroneal veins. 2. Left Espinosa's cyst. This Critical Result was discussed with Dr. Mcmillan at 11:43 AM on 04/11/2018 and it was ascertained that the content and urgency of the report was understood at the time of direct communication.
--- NOTE | 2018-04-11 14:02 | Patient Discharge Instructions ---
Discharge Instructions General Discharge Information You were seen/treated for: Pulmonary embolism & dvt, altered mental status and hypokalemia Watch for these problems: If you have sudden shortness of breath or an acute change in mental status/ consciousness, please seek urgent care as these may indicate a recurrence of symptoms Special Instructions: Please follow-up with your service order dispatcher chief and primary care provider about your recent hospitalization. Diet Continue normal diet: Yes Recommended Diet: Mechanical soft diet Thin liquids OK Activity Full Activity/No Limits: No Activity Self Limited: Yes Acute Coronary Syndrome Inclusion Criteria At DC or during hospital stay patient has or had the following: ACS DIAGNOSIS No Discharge Core Measures Meds if any: Prescribed or Continued at Discharge Meds if any: NOT Prescribed or Continued at Discharge Congestive Heart Failure Inclusion Criteria At DC or during hospital stay patient has or had the following: CHF DIAGNOSIS No Discharge Core Measures Meds if any: Prescribed or Continued at Discharge Meds if any: NOT Prescribed or Continued at Discharge Cerebrovascular accident Inclusion Criteria At DC or during hospital stay patient has or had the following: CVA/TIA Diagnosis No Discharge Core Measures Meds if any: Prescribed or Continued at Discharge Meds if any: NOT Prescribed or Continued at Discharge Venous thromboembolism Inclusion Criteria VTE Diagnosis Yes VTE Type Pulmonary Embolism VTE Confirmed by (Test) CT CHEST ANGIOGRAM Discharge Core Measures - Per Current guidelines, there needs to be overlap - treatment for the first 5 days of Warfarin therapy. - If discharged on Warfarin prior to 5 days of - overlap therapy, the patient will need to be - assessed for post discharge needs including - *Post discharge parental anticoagulation - *Warfarin and/or parental anticoagulation education - *Follow up date to check INR post discharge At least 5 days overlap therapy as Inpatient No (Patient not on warfarin) Why was Parental Med stopped Other Anticoagulant given Meds if any: Prescribed or Continued at Discharge Note: Overlap Therapy is Warfarin and Anticoagulant Meds if any: NOT Prescribed or Continued at Discharge Comment Patient started on Eliquis
[2018-04-11 14:35] VITALS: BP 122/60
[2018-04-11 19:25] LABS: PTT 45 SEC (25-37)
[2018-04-11 22:55] VITALS: BP 126/64
[2018-04-12 02:37] LABS: PTT 45 SEC (25-37)
[2018-04-12 05:59] VITALS: BP 128/72
--- NOTE | 2018-04-12 06:59 | PN- Housestaff ---
See Addendum Subjective Follow-up For: Altered mental status, pulmonary emboli, DVT Tele-Events Since Last Visit: Normal sinus rhythm, 53-97 Subjective: Patient seen resting in the bed. He is currently complaining of some pain in the right axillary region, 8 out of 10. The patient is oriented to person and place, but is somewhat confused and unable to understand the date. Therefore the history was difficult to obtain, but the patient denies fever, chills, cough , shortness of breath or chest pain. The patient's son, Brett is JOYCE, and brett can be reached at . Review of Systems Constitutional: Denies: chills, fever. Cardiovascular: Reports: peripheral edema. Denies: chest pain, palpitations. Respiratory: Denies: cough, short of breath. Gastrointestinal: Denies: abdominal pain, nausea. Objective Last 24 Hrs of Vital Signs/I&O Vital Signs Date Time Temp Pulse Resp B/P B/P Pulse O2 O2 Flow FiO2 Mean Ox Delivery Rate 04/12 0559 97.9 91 20 128/72 97 Nasal Cannula 04/11 2255 98.1 96 20 126/64 95 Nasal Cannula 04/11 2225 Nasal 2.0L Cannula 04/11 1435 98.1 93 20 122/60 97 Nasal 2.0L Cannula 04/11 1252 Nasal 2.0L Cannula 04/11 1246 Nasal 2.0L Cannula 04/11 0857 98.3 80 20 108/58 98 Nasal 2.0L Cannula 04/11 0800 Nasal 2.0L Cannula Intake & Output 04/12 0800 04/12 0000 04/11 1600 Intake Total 420 314 378 Output Total 350 300 Balance 420 -36 78 Intake, IV 180 134 318 Intake, Oral 240 180 60 Output, Urine 350 300 Patient 78.925 kg Weight Physical Exam General Appearance: Alert, Cooperative, No Acute Distress, Patient oriented to person and place Cardiovascular: Regular Rate, Normal S1, Normal S2, Systolic murmur appreciated Lungs: Clear to Auscultation Abdomen: Soft, No Tenderness Current Medications: Current Medications Sig/Lizandro Start time Last Medication Dose Route Stop Time Status Admin Ceftriaxone Sodium 2,000 MG 1700 04/11 1700 AC 04/11 IV 1839 Heparin Sodium 25,000 UNIT Q24H 04/10 2345 AC 07/11 (Porcine) IV 1722 Sodium Chloride 500 ML Potassium Chloride 40 MEQ Q8 04/11 1800 DC 04/12 PO 04/12 0601 0547 Potassium Chloride 10 MEQ Q1H 04/11 1115 DC 04/11 IV 04/11 1216 1439 Last 24 Hrs of Lab/Angelo Results Last 24 Hrs of Labs/Mics: Laboratory Tests 04/12/18 0605: Sodium Pending, Potassium Pending, Chloride Pending, Carbon Dioxide Pending, Anion Gap Pending, BUN Pending, Creatinine Pending, BUN/Creatinine Ratio Pending , CBC w Diff Pending, WBC Pending, RBC Pending, Hgb Pending, Hct Pending, MCV Pending, MCH Pending, MCHC Pending, RDW Pending, Plt Count Pending, MPV Pending 04/12/18 0210: APTT 45 H 04/11/18 1855: APTT 45 H 04/11/18 1630: Anion Gap 11, Estimated GFR > 60, BUN/Creatinine Ratio 21.1 04/11/18 1300: Troponin I 0.03 Assessment/Plan Assessment: Patient is an 79-year-old male with history of Parkinson's disease, axillary mass concerning for malignancy, presenting with shortness of breath and altered mental status/unresponsiveness found to have bilateral pulmonary emboli, diffusely throughout the lungs. 1. Pulmonary emboli calf veins 2. DVTs 3. Altered mental status 4. Axillary mass concerning for malignancy abdomen and pelvis possibly representing malignancy concern hospital 5. Hypokalemia 6. Sacral and heel wounds (present on admission) B/l heels noted with healed blistered area approximately 2cm each, sharp excisional removal of devitalized epidermis with use of forceps & scissors revealed intact epidermis underneath. Coccyx noted with multiple areas of skin alteration presenting clinicaly as DTI evolving 2x3 cm, 1x3 cm and 1x0.5cm dark discoloration and murky fluid-filled blistering flush at surface. Monitor B/L heels each night and prn, offload feet on pillow for 100% pressure relief. Apply moisture barrier each night and prn to coccyx. Every hour repositioning and group 2 APM. 7. Bacteremia (CONTAMINATION) positive cocci in pairs, alpha strep; second cultures negative after 1 day of growth clinical symptoms of infection. Discussed with attending. Problem List: 1. Pulmonary embolism 2. Altered mental state 3. Parkinson disease 4. Axillary mass 5. DVT (deep venous thrombosis) 6. Hypokalemia 7. Bacteremia Pain Ratin Pain Location: Right axilla Pain Goal: Pain 4 or less Pain Plan: Tylenol Tomorrow's Labs & Rationales: CBC & BEP
--- NOTE | 2018-04-12 08:04 | ECHOCARDIOGRAM REPORT ---
MAURA GRAYSON Age: 87 : 1930 Gender: M Exam Date: 04/11/2018 19:46 Exam Location: [address] [facility] Ht (in): 74 Wt (lb): 171 BSA: 2.01 BP: 110 / 55 Ordering Physician: Agustin Espinal MD Referring Physician: Daniel Graf MD, PhD Technologist: Marija Ocasio [facility] Room Number: 178 Indications: AFIB/FLUTTER Rhythm: Atrial fibrillation Technical Quality: fair FINDINGS Left Ventricle Normal left ventricular size with mild left ventricular hypertrophy. Normal systolic function with no obvious regional wall motion abnormalities. The ejection fraction is visually estimated at 70%. Right Ventricle The right ventricle is normal in size and function. Right Atrium The right atrium is normal in size. Left Atrium The left atrium is mildly enlarged. The interatrial septum is intact. Mitral Valve The mitral valve is normal in structure and function. There is mild mitral regurgitation. Aortic Valve Moderately thickened and sclerotic aortic valve with moderate stenosis. There is no aortic regurgitation. Tricuspid Valve The tricuspid valve is normal in structure and function. There is mild tricuspid regurgitation. Pulmonary artery systolic pressure is mild to moderately elevated to 46mmHg. Pulmonic Valve Structurally normal pulmonic valve. There is no pulmonic regurgitation. Pericardium Normal pericardium without effusion. No pleural effusion. Great Vessels Normal aortic root dimension. The aortic arch and great vessels are well seen and are normal. CONCLUSIONS 1. Normal EF of 70%. 2. Mild left ventricular hypertrophy. 3. Mild left atrial enlargement. 4. Mild mitral regurgitation. 5. Mild tricuspid regurgitation. 6. Moderate aortic stenosis. 7. Mild to moderate pulmonary hypertension. Daniel Graf M.D. (Electronically Signed) Final Date: 12 April 2018 08:02 MEASUREMENTS (Male / Female) Normal Values 2D ECHO LV Diastolic Diameter PLAX 3.5 cm 4.2 - 5.9 / 3.9 - 5.3 cm LV Systolic Diameter PLAX 2.1 cm 2.1 - 4.0 cm LV Fractional Shortening PLAX 40.0 % 25 - 46 % LV Ejection Fraction 2D Teich 71.7 % IVS Diastolic Thickness 1.2 cm LVPW Diastolic Thickness 1.2 cm LV Relative Wall Thickness 0.7 RV Internal Dim ED PLAX 2.5 cm 1.9 - 3.8 cm LVOT Diameter 2.1 cm Aortic Root Diameter 3.1 cm LA Systolic Diameter LX 4.5 cm 3.0 - 4.0 / 2.7 - 3.8 cm LA Volume 23.0 cm 18 - 58 / 22 - 52 cm Ascending Aorta Diameter 3.4 cm DOPPLER AV Peak Velocity 334.0 cm/s AV Peak Gradient 44.6 mmHg AV Mean Velocity 234.0 cm/s AV Mean Gradient 25.0 mmHg AV Velocity Time Integral 63.2 cm LVOT Peak Velocity 187.0 cm/s LVOT Peak Gradient 14.0 mmHg LVOT Mean Velocity 132.0 cm/s LVOT Mean Gradient 8.0 mmHg LVOT Velocity Time Integral 39.2 cm LVOT Stroke Volume 135.8 cm AV Area Cont Eq vti 2.1 cm AV Area Cont Eq pk 1.9 cm MV Peak Velocity 106.0 cm/s MV Peak Gradient 4.5 mmHg MV Mean Velocity 60.6 cm/s MV Mean Gradient 2.0 mmHg Mitral E Point Velocity 78.0 cm/s Mitral A Point Velocity 80.5 cm/s Mitral E to A Ratio 1.0 MV PHT Velocity 93.1 cm/s MV Deceleration Swift 356.0 cm/s MV Pressure Half Time 78.5 ms MV Area PHT 2.8 cm MV Deceleration Time 235.0 ms TR Peak Velocity 328.0 cm/s TR Peak Gradient 43.0 mmHg Right Atrial Pressure 5.0 mmHg Pulmonary Artery Systolic Pressure 48.0 mmHg Right Ventricular Systolic Pressure 48.0 mmHg LV E' Lateral Velocity 8.8 cm/s Mitral E to LV E' Lateral Ratio 8.9 LV E' Septal Velocity 9.1 cm/s Mitral E to LV E' Septal Ratio 8.6
[2018-04-12 08:20] LABS: ABSOLUTE BASOPHIL COUNT 0 /CUMM (0.0-0.2); ABSOLUTE EOSINOPHIL COUNT 0 /CUMM (0.0-0.7); ABSOLUTE GRANULOCYTE CT 7.8 /CUMM (1.4-6.5); ABSOLUTE MONOCYTE COUNT 0.5 /CUMM (0.10-0.60); BASOPHIL % 0.4 % (0.0-2.0); EOSINOPHIL % 0.3 % (0-5); HEMATOCRIT 30.4 % (42-52); MEAN CORPUSCULAR HGB CONC 33.4 G/DL (33.0-37.0); MEAN CORPUSCULAR VOLUME 86.8 FL (80.0-94.0); MEAN PLATELET VOLUME 8.8 FL (7.4-10.4); PLATELET COUNT 234 /CUMM (130-400); RBC DISTRIBUTION WIDTH 13.5 % (11.5-14.5); RED BLOOD CELL CT 3.51 /CUMM (4.70-6.10); WHITE BLOOD CELL COUNT 9.4 /CUMM (4.8-10.8)
[2018-04-12 10:02] LABS: GRANULOCYTE % 83.4 % (42.2-75.2)
[2018-04-12 10:06] LABS: PTT 67 SEC (25-37)
--- NOTE | 2018-04-12 10:08 | Cons- Cardiology ---
General Information and HPI Consulting Request Date of Consult: 04/04/18 Requested By: Saad Calixto MD History of Present Illness: Neo is an 87 year old male who carries a history of aortic stenosis and was initially seen in the setting of a syncopal episode. He was also diagnosed with atrial fibrillation recently. Neo appears to have progression of his Parkinson's disease and tends to choke when eating. He was not able to come to his follow up appointment a few days ago , but his son who is a power of attorney lawyer met with me to go over his results. He is now essentially bedbound and therefore at less risk of fall. He does have a plan for a biopsy of a large axillary mass in the near future. The patient was brought to the ER for mental status changes beyond his baseline along with fever. He was discovered to have a pulmonary embolism. The patient cannot offer a history at this time but he typically is free fo chest discomfort, shortness of breath, lightheadedness or palpitations. Despite the absence of symptoms, he is now noted to be in atrial fibrillation of unknown duration. It should be noted that this patient lives at home with his son who reports that the patient falls on a daily basis. Neo was diagnosed with Parkinson's disease and he has a difficult time initiating movement, stopping and walking. He does have some low back pain as well but it is not discomfort that is the problem and he can hold himself up well. His echo shows a normal EF of 55% with moderate aortic stensosis and mild aortic insufficiency. Mild mitral and tricuspid regurgitation is also noted. In the past this patient was able to walk a mile on a daily basis and do deep knee bends without experiencing any chest pain, pressure, tightness, shortness of breath, lightheadedness or palpitations. He is also limited in his mobility due to what sounds like disc disease and some hip discomfort. Previously when he tried to jog he could only go a few feet before his left knee bothered him. To review the patient's past history: A few years ago this patient had some atypical chest discomfort, which has resolved. He was risk stratified in October of 2011 with a treadmill nuclear stress test, which showed an exercise tolerance of 8 minutes, 58 seconds, following Dwight protocol. He did have some shortness of breath, but no other symptoms of myocardial ischemia. Borderline 0.[address] depressions were noted in Leads V5 and V6, which did not meet criteria for ischemia. There were occasional PAC's. In terms of nuclear imaging, the patient demonstrated a fixed posterior to mid-inferior defect, but no reversible ischemia was identified. His overall EF was normal at 60%. An echocardiogram was also obtained. This study showed an overall normal EF of 60% . There was moderate left ventricular hypertrophy, presumably related to high blood pressure. The atria of the heart were mildly dilated. In terms of cardiac valves, the patient demonstrated mild to moderate aortic stenosis, with mild aortic insufficiency. There was mild mitral regurgitation, mild to moderate tricuspid regurgitation, and trace pulmonic insufficiency. RV pressures were only mildly elevated at 43 mmHG. Prior cardiac workup included a cardiac catheterization. This study, performed in 2003, showed normal epicardial coronary arteries, with some suggestion of coronary spasm that has been effectively treated with Norvasc therapy. In consideration of some atypical chest discomfort, the patient was started on Protonix, which seems to have helped. Allergies/Medications Allergies: Coded Allergies: No Known Allergies (04/11/18) Review of Systems Review of Systems: A review of systems was not obtainable from this patient. Past History Travel History Traveled to [place] past 21 day No Medical History Neurological: Parkinson's disease Cardiovascular: AFIB, aortic stenosis (moderate), hypertension, syncope Renal: benign prost hyperplasia Surgical History Surgical History: unobtainable (hemorrhoidectomy), hernia repair-inguinal (right ) Family History Relations & Conditions If Any: SON (atrial fibrillation). FATHER (colon cancer). Psychosocial History Where Do You Live? Home Who Do You Live With? child (SON) Smoking Status: Unknown If Ever Smoked ETOH Use: 6 Illicit Drug Use: UTD Exam & Diagnostic Data Vital Signs and I&O Vital Signs Date Time Temp Pulse Resp B/P B/P Pulse O2 O2 Flow FiO2 Mean Ox Delivery Rate 04/12 0800 97 Nasal 2.0L Cannula 04/12 0559 97.9 91 20 128/72 97 Nasal Cannula 04/11 2255 98.1 96 20 126/64 95 Nasal Cannula 04/11 2225 Nasal 2.0L Cannula 04/11 1435 98.1 93 20 122/60 97 Nasal 2.0L Cannula 04/11 1252 Nasal 2.0L Cannula 04/11 1246 Nasal 2.0L Cannula Intake & Output 04/12 1600 07/12 0800 04/12 0000 04/11 1600 04/11 0800 04/11 0000 Intake Total 420 395 274 9158 3100 Output Total 350 300 500 Balance 420 -36 78 580 3100 Intake, IV 180 883 014 9965 3100 Intake, Oral 240 180 60 Output, Urine 350 300 500 Patient 174 lb 171 lb 185 lb Weight Weight Bed scale Measurement Method Physical Exam: General: WD/WN male in NAD; awake and non-verbal HEENT: NC/AT, PERRL, EOMI Neck: no JVD, no carotid bruit Heart: irregularly irregular with 2/6 systolic murmur at the RUSB and LLSB Lungs: clear bilaterally Abdomen: soft, NT, +ve bowel sounds Extremities: no edema Assessment/Plan Assessment/Plan * This patient has recently discovered atrial fibrillation. He was not started on chronic anticoagulation for this illness due to the patient having daily falls. Over the past three weeks this patient's condition has deteriorated to the point that he is bedbound and therefore his risk of falling has decreased. In addition, the patient not has a DVT and multiple PE's and likely cancer which is a hypercoagulable state. As such, chronic anticoagulation is now recommended. It is reasonable to discuss this issue with the patient's son since Noe likely has metastatic cancer and has a very poor quality of life at this point in time. * Will review echo. Consult Acknowledgment - Thank you for your consult request.
[2018-04-12] MEDS ORDERED: CARBIDOPA-LEVO1 EAC7 PO (11:42)
[2018-04-12] MEDS ORDERED: FLOMAX0.4 M1 PO (11:42)
[2018-04-12] MEDS ORDERED: PROSCAR5 M1 PO (11:42)
[2018-04-12] MEDS ORDERED: AMLODIPINE BESY10 M1 PO (11:43)
[2018-04-12] MEDS ORDERED: LIPITOR10 M1 PO (11:44)
[2018-04-12] MEDS ORDERED: METOPROLOL SUCC25 M1 PO (11:46)
--- NOTE | 2018-04-12 12:47 | Discharge Summary ---
See Addendum Visit Information Visit Dates Admission Date: 04/10/18 Discharge Date: 04/13/18 Hospital Course Course Attending Physician: Saad Calixto MD Primary Care Physician: Daniel Dumont MD Hospital Course: Mr Alexandra is a 87 year old man w/ a PMHx Parkinson's disease, hypertension, paroxysmal atrial fibrillation(diagnosed 3 weeks ago), right axillary mass was brought to the hospital with a chief concern of altered mental status. As per the EMS, the son who is the primary caregiver called EMS stating that he was not acting right. The patient was found in lying naked in urine. The history was obtained from the patient's son Irwin who is the POA ), who stated that Mr Alexandra has been increasingly lethargic in the last few months. He was recently diagnosed with having right axillary mass, for which biopsy was planned soon by his primary care physician-Dr. Dumont. Reported to have increasing weight loss and decreased appetite. He lives with his son, who reported multiple falls in the last month. Also reported to have difficulty ambulating lately. He was evaluated by Dr. Graf 3 weeks ago, and was found to have paroxysmal atrial fibrillation. Given his age and multiple falls, anticoagulation was not started. He was also noted to to be persistently hypotensive. He was also found to be increasingly somnolent. Hospital course 1. Bilateral pulmonary embolism/bilateral deep vein thrombosis 2. Dementia 3. Parkinson's disease 4. Physical deconditioning 5. Decubitus ulcer -seen on admission. 1. Pulmonary emboli calf veins daily for a week, to continue this dose for a total of a week, and then switch to 5 mg p.o. twice daily 2. DVTs twice daily afterwards 3. Atrial fibrillation patient went into atrial fibrillation with a heart rate around 110s. Patient was restarted on his metoprolol 25 twice daily. 4. Altered mental status Sinemet. 5. Axillary mass concerning for malignancy abdomen and pelvis possibly representing malignancy. Patient already had CAT scan outside and was diagnosed with this axillary mass 2-3 months ago by his primary care physician who suggested biopsy. But the patient family was unable to make a decision then and hence he did not get biopsy until he came to the hospital. concern discussion with the patient's son Irwin who at this moment wants to make him comfortable. He does not want any aggressive measures/biopsy/further treatment for the axillary mass. Hence palliative care was consulted nonessential therapies, to maximize patient's comfort. Advised to follow-up with palliative care at the short-term rehab. 6. Hypokalemia 7. Sacral and heel wounds (present on admission) B/l heels noted with healed blistered area approximately 2cm each, sharp excisional removal of devitalized epidermis with use of forceps & scissors revealed intact epidermis underneath. Coccyx noted with multiple areas of skin alteration presenting clinicaly as DTI evolving 2x3 cm, 1x3 cm and 1x0.5cm dark discoloration and murky fluid-filled blistering flush at surface. Monitor B/L heels each night and prn, offload feet on pillow for 100% pressure relief. Apply moisture barrier each night and prn to coccyx. Every hour repositioning and group 2 APM. 8. Bacteremia (CONTAMINATION) positive cocci in pairs, alpha strep; second cultures negative after 1 day of growth clinical symptoms of infection. Discussed with attending. Initially started on ceftriaxone and this was discontinued. Allergies: Coded Allergies: No Known Allergies (04/11/18) Pertinent Lab Results: Chest CTA 1. Diffuse pulmonary emboli. No evidence of elevated right heart pressures. 2. Redemonstration of the prominent right axillary mass, possibly representing a conglomerate of lymph nodes. 3. 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 This involves a lesion within the left psoas muscle and the lesion along the left sigmoid colon with prominent adjacent stranding. 4. Indeterminate 0.9 cm right adrenal gland nodule. 5. Area of hypoattenuation noted along the periphery of the left atrium at the heart, nonspecific in nature. Thrombus is possible. This could be evaluated with echocardiography. This critical result was discussed with Hank Lezama by telephone at 04/10/2018 11:11 PM and it was ascertained that the content and urgency of the report was understood at the time of direct communication. VTE: positive Echocardiogram CONCLUSIONS 1. Normal EF of 70%. 2. Mild left ventricular hypertrophy. 3. Mild left atrial enlargement. 4. Mild mitral regurgitation. 5. Mild tricuspid regurgitation. 6. Moderate aortic stenosis. 7. Mild to moderate pulmonary hypertension Disposition Summary Disposition Principal Diagnosis: Bilateral pulmonary embolism, bilateral deep vein thrombosis Additional Diagnosis: Advanced dementia, Parkinson's disease Discharge Disposition: SNF Discharge Instructions General Discharge Information Code Status: Do Not Resucitate/Intubat Patient's Diet: Heart healthy diet Patient's Activity: As tolerated Follow-Up Instructions/Appts: Please follow-up with palliative care/primary care/cardiology Medications at Discharge Discharge Medications: Stop taking the following medications: Amlodipine Besylate (Amlodipine Besylate) 10 MG TABLET ORAL DAILY Atorvastatin Calcium (Lipitor) 10 MG TABLET ORAL DAILY Furosemide (Lasix) 40 MG TABLET ORAL TWICE DAILY Qty = 60 Continue taking these medications: Finasteride (Proscar) 5 MG TABLET 1 Tablet ORAL DAILY Carbidopa/Levodopa (Carbidopa-Levodopa 25-100 Tab) 25 MG-100 MG TABLET 1 Tablet ORAL THREE TIMES DAILY Tamsulosin HCl (Flomax) 0.4 MG CAP.ER.24H 1 Capsule ORAL DAILY Metoprolol Succinate (Metoprolol Succinate) 25 MG TAB 1 Tablet ORAL DAILY Start taking the following new medications: Apixaban (Eliquis) 5 MG TABLET 1 Milligram ORAL TWICE DAILY Qty = 71 No Refills Instructions: please take 2 pill bid until 04/18 please take 1 pill bid from 04/19 Copies To: Homar FORMAN PHD,Daniel Esteban; Tim FORMAN,Daniel Jackson Attending MD Review Statement Documenting Attending: Saad Calixto MD Other Findings: Medically stable to be discharged to long term facility.
[2018-04-12] MEDS ORDERED: ELIQUIS5 M1 PO (13:41)
[2018-04-12] MEDS ORDERED: LASIX40 M1 PO (14:20)
--- NOTE | 2018-04-12 14:34 | Event Note ---
Event Note Event Note: I spoke to the patient's son Mr. Gayle who is the POA over the phone regarding goals of care. Mr. Gayle told me that at this point given his age and dementia/ Parkinson's disease in the best interest of the patient he wants to make him comfortable as possible. Otherwise he want to continue his Eliquis for his pulmonary embolism. Hence palliative care consultation was placed. I spoke to Dr. Kwan regarding this patient who suggested to withdraw unnecessary medications and keep him DNR/DNI. He said that he agrees with the above plan and suggested long-term care placement for the patient. We will continue him on Eliquis and hold all his other medications. Aircraft Seat Upholsterer/attending agrees with the plan.
[2018-04-12 14:43] VITALS: BP 130/76
--- NOTE | 2018-04-12 15:00 | PN- Cardiology ---
Subjective Subjective: * Patient is more alert and is without complaints. * potassium 3.4 * Converted to a sinus rhythm Objective Vital Signs and I&Os Vital Signs Date Time Temp Pulse Resp B/P B/P Pulse O2 O2 Flow FiO2 Mean Ox Delivery Rate 04/12 1443 98.2 89 20 130/76 97 Nasal 2.0L Cannula 04/12 0800 97 Nasal 2.0L Cannula 04/12 0559 97.9 91 20 128/72 97 Nasal Cannula 04/11 2255 98.1 96 20 126/64 95 Nasal Cannula 04/11 2225 Nasal 2.0L Cannula Intake & Output 04/12 1600 04/12 0800 04/12 0000 04/11 1600 04/11 0800 04/11 0000 Intake Total 420 998 057 4469 3100 Output Total 350 300 500 Balance 420 -36 78 580 3100 Intake, IV 180 338 824 0320 3100 Intake, Oral 240 180 60 Output, Urine 350 300 500 Patient 174 lb 171 lb 185 lb Weight Weight Bed scale Measurement Method Physical Exam: General: WD/WN male in NAD; awake and non-verbal HEENT: NC/AT, PERRL, EOMI Neck: no JVD, no carotid bruit Heart: RRR with 2/6 systolic murmur at the RUSB and LLSB Lungs: clear bilaterally Abdomen: soft, NT, +ve bowel sounds Extremities: no edema Assessment/Plan Assessment/Plan * This patient has recently discovered atrial fibrillation. He was not started on chronic anticoagulation for this illness due to the patient having daily falls. Over the past three weeks this patient's condition has deteriorated to the point that he is bedbound and therefore his risk of falling has decreased. In addition, the patient now has a DVT and multiple PE's and likely cancer which is a hypercoagulable state. As such, chronic anticoagulation is now recommended. It is reasonable to discuss this issue with the patient's son since Neo likely has metastatic cancer and has a very poor quality of life at this point in time. * At present this patient is in a sinus rhythm. His atrial fibrillation appears to be paroxysmal. * Echo shows increased RV pressures consistent with his PE's. * Replete potassium. Continue telemetry? Yes
[2018-04-12 22:09] VITALS: BP 130/80
[2018-04-13 07:04] VITALS: BP 138/70
--- NOTE | 2018-04-13 07:04 | PN- Housestaff ---
Jose Raul Mcmillan 04/13/18 0704: Subjective Follow-up For: Altered mental status, pulmonary emboli, DVT Tele-Events Since Last Visit: OVERNIGHT ATRIAL FIBRILLATION RATE [id number] Subjective: Patient seen resting comfortably in the bed. He is aware of his location and his name, but not oriented to time. The patient is arousable, but drowsy. He is not complaining of any pain, specifically denies chest pain. Overnight the patient went into atrial fibrillation, but denies palpitations and is on Eliquis now for anticoagulation. Patient is on 2 L of oxygen with a nasal cannula, and denies shortness of breath. Patient is on 2 L oxygen nasal cannula. Palliative came to see patient yesterday, recommended long-term care placement and withdrawal of unnecessary medications. Review of Systems Constitutional: Denies: chills, fever. Cardiovascular: Denies: chest pain, palpitations. Respiratory: Denies: cough, short of breath. Gastrointestinal: Denies: abdominal pain, nausea, vomiting. Objective Last 24 Hrs of Vital Signs/I&O Vital Signs Date Time Temp Pulse Resp B/P B/P Pulse O2 O2 Flow FiO2 Mean Ox Delivery Rate 04/13 0704 97.7 114 24 138/70 97 Nasal 2.0L Cannula 04/13 0000 Nasal 2.0L Cannula 04/12 2209 99.6 90 20 130/80 96 04/12 2029 123 126/68 04/12 1913 Nasal 2.0L Cannula 04/12 1600 97 Nasal Cannula 04/12 1443 98.2 89 20 130/76 97 Nasal 2.0L Cannula 04/12 0800 97 Nasal 2.0L Cannula Physical Exam General Appearance: Alert, Cooperative, No Acute Distress, ORIENTED TO PERSON AND PLACE, NOT TIME Neck: Supple, No JVD Lymphatic: Axillary nl (LARGE AXILLARY MASS ON R) Cardiovascular: Normal S1, Normal S2, TACHYCARDIC, IRREGULAR Lungs: Clear to Auscultation Abdomen: Soft, No Tenderness Extremities: No Clubbing, No Cyanosis, No Edema Current Medications: Current Medications Sig/Lizandro Start time Last Medication Dose Route Stop Time Status Admin Apixaban 10 MG BID 04/12 0957 AC 04/12 PO 2026 Ceftriaxone Sodium 2,000 MG 1700 04/11 1700 DC 04/11 IV 1839 Heparin Sodium 25,000 UNIT .ST-MED ONE 04/12 1122 DC (Porcine) IV 04/12 1123 Heparin Sodium 25,000 UNIT Q24H 04/10 2345 DC 04/11 (Porcine) IV 1722 Sodium Chloride 500 ML Metoprolol Tartrate 12.5 MG ONCE ONE 04/12 2300 CAN PO 04/12 2301 Metoprolol Tartrate 12.5 MG ONCE ONE 04/12 2030 DC 04/12 PO 04/12 Metoprolol Tartrate 25 MG .STK-MED ONE 04/12 2027 DC PO 04/12 2028 Patient Medication 1 ED ONE ONE 04/12 1615 DC Teaching ED 04/12 1616 Potassium Chloride 20 MEQ ONCE ONE 04/12 1745 DC 04/12 PO 04/12 1746 1828 Last 24 Hrs of Lab/Angelo Results Last 24 Hrs of Labs/Mics: Laboratory Tests 04/13/18 0608: PT Pending, INR Pending 04/12/18 0930: APTT 67 H Assessment/Plan Assessment: Patient is an 79-year-old male with history of Parkinson's disease, axillary mass concerning for malignancy, presenting with shortness of breath and altered mental status/unresponsiveness found to have bilateral pulmonary emboli, diffusely throughout the lungs. 1. Pulmonary emboli calf veins daily for a week, to continue this dose for a total of a week, and then switch to 5 mg p.o. twice daily 2. DVTs twice daily afterwards 3. Atrial fibrillation tachycardic rate 4. Altered mental status 5. Axillary mass concerning for malignancy abdomen and pelvis possibly representing malignancy concern hospital nonessential therapies, to maximize patient's comfort 6. Hypokalemia 7. Sacral and heel wounds (present on admission) B/l heels noted with healed blistered area approximately 2cm each, sharp excisional removal of devitalized epidermis with use of forceps & scissors revealed intact epidermis underneath. Coccyx noted with multiple areas of skin alteration presenting clinicaly as DTI evolving 2x3 cm, 1x3 cm and 1x0.5cm dark discoloration and murky fluid-filled blistering flush at surface. Monitor B/L heels each night and prn, offload feet on pillow for 100% pressure relief. Apply moisture barrier each night and prn to coccyx. Every hour repositioning and group 2 APM. 8. Bacteremia (CONTAMINATION) positive cocci in pairs, alpha strep; second cultures negative after 1 day of growth clinical symptoms of infection. Discussed with attending. Problem List: 1. Pulmonary embolism 2. Parkinson disease 3. Altered mental state 4. Axillary mass 5. DVT (deep venous thrombosis) 6. Hypokalemia Pain Ratin Pain Location: NONE Pain Goal: Pain 4 or less Pain Plan: TYLENOL Tomorrow's Labs & Rationales: NONE Durga FORMAN,Saad 04/13/18 1056: Attending MD Review Statement Attending Statement Attending MD Statement: examined this patient, discuss w/resident/PA/LIQUEFIER, agreed w/resident/PA/LIQUEFIER, reviewed EMR data (avail), discussed with nursing, discussed with case mgmt, amended to note Attending Assessment/Plan: Problems: 1. Bilateral pulmonary embolism. 2. Bilateral lower extremity deep vein thrombosis 3. Questionable thrombosis in the left atrium 4. 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 5. Cognitive deficit; likely secondary to Parkinson's disease. 6. Fever 7. Hypokalemia 8. Anemia 9. Atrial fibrillation 10. Bilateral heel ulcerations. 11. Market deconditioning; due to Parkinson's disease. Plan: -Patient was previously not on anticoagulation for his recently diagnosed atrial fibrillation due to his high fall risk however recent time he has essentially become bedbound. He is going to intermediate facility for physical therapy. it is reasonable to provide anticoagulant therapy at this point due to his newly diagnosed venous thromboembolic disease. -Patient's family did not want any aggressive management for the patient given his advanced age and multiple comorbidities. Did not want to undergo biopsy or treatment for his likely malignancy. We will focus on keeping him comfortable. Palliative care consultation was obtained here. Recommend palliative care follow-up at the intermediate facility. -Blood pressure medications particularly his metoprolol was initially held on presentation as his blood pressure was in the 90s to low 100s. patient presented in atrial fibrillation converted to normal sinus rhythm. Overnight he went back into atrial fibrillation with rapid ventricular response. He was restarted on metoprolol. Case was discussed with his ada accommodation consultant. Patient has had good control with metoprolol at the current dose at home. Would recommend continuing his regimen upon discharge. -We will be discontinuing his atorvastatin and Lasix. We will continue Sinemet to help reduce symptoms of his Parkinson's disease. We will continue his finasteride and tamsulosin to prevent urinary outlet obstruction. -Patient remains afebrile. He is going on. Only one set of cultures. Likely contaminant. Antibiotic therapy has been discontinued. -He is medically stable to be discharged to intermediate facility once a bed becomes available.
[2018-04-13 08:14] LABS: PT 19.3 SEC (9.4-12.5)
--- NOTE | 2018-04-13 08:55 | Cons- Palliative Care ---
General Information and HPI Consulting Request Date of Consult: 04/12/18 Requested By: Saad Calixto MD Reason for Consult: care/transition planning Source old records, medical team Exam Limitations unable to give history History of Present Illness: 87M admitted to for change in level of consciousness. He was identified with diffuse pulmonary emboli in the setting of a previously known (R) axillary mass for which workup had not yet been performed. The patient is unable to offer any history, however extensive information has been gathered by the medical team who have spoken with the patient's PCP Dr. Daniel Dumont and the patient's son Irwin, with whom he does not live: the patient has been previously living with another son, though there has been some question whether the patient has been able to thrive in that environment. His son Irwin ([facility]) reports that he has been advised to pursue LTC for his father. The son reportedly expresses understanding of the seriousness of the known (R) axillary mass, and has indicated a desire to pursue a comfort prioritzed plan of care and to defer formal workup to obtain diagnosis or to pursue tx should diagnosis confirm malignancy. He has authorized medical team to pursue LTC placement for the patient. Allergies/Medications Allergies: Coded Allergies: No Known Allergies (04/11/18) Home Med List: Amlodipine Besylate 10 MG TABLET 1 TAB PO DAILY hypertension (Reported) Apixaban (Eliquis) 5 MG TABLET 1 MG PO BID pulmonary embolism please take 2 pill bid until 04/18 please take 1 pill bid from 04/19 Atorvastatin Calcium (Lipitor) 10 MG TABLET 1 TAB PO DAILY hyperlipidemia ( Reported) Carbidopa/Levodopa (Carbidopa-Levodopa 25-100 Tab) 25 MG-100 MG TABLET 1 TAB PO TID parkinson (Reported) Finasteride (Proscar) 5 MG TABLET 1 TAB PO DAILY bph (Reported) Furosemide (Lasix) 40 MG TABLET 1 TAB PO BID htn (Reported) Metoprolol Succinate 25 MG TAB 1 TAB PO DAILY hypertension (Reported) Tamsulosin HCl (Flomax) 0.4 MG CAP.ER.24H 1 CAP PO DAILY bph (Reported) Current Medications: Current Medications Sig/Lizandro Start time Last Medication Dose Route Stop Time Status Admin Apixaban 10 MG BID 04/12 957 AC 04/12 PO 2026 Carbidopa/Levodopa 1 TAB TID 04/13 0900 AC PO Ceftriaxone Sodium 2,000 MG 1700 07/11 1700 DC 04/11 IV 1839 Finasteride 5 MG DAILY 04/13 09 AC PO Heparin Sodium 25,000 UNIT .STK-MED ONE 04/12 1122 DC (Porcine) IV 04/12 1123 Heparin Sodium 25,000 UNIT Q24H 04/10 2345 DC 04/11 (Porcine) IV 1722 Sodium Chloride 500 ML Metoprolol Succinate 25 MG DAILY 04/13 09 AC PO Metoprolol Tartrate 12.5 MG ONCE ONE 04/12 2300 CAN PO 04/12 2301 Metoprolol Tartrate 12.5 MG ONCE ONE 04/12 2030 DC 04/12 PO 04/12 Metoprolol Tartrate 25 MG .STK-MED ONE 04/12 2027 DC PO 04/12 2028 Patient Medication 1 ED ONE ONE 04/12 1615 DC Teaching ED 04/12 1616 Potassium Chloride 20 MEQ ONCE ONE 04/12 1745 DC 04/12 PO 04/12 1746 1828 Tamsulosin HCl 0.4 MG DAILY 04/13 900 AC PO Review of Systems Review of Systems: unable to obtain review of systems Past History Medical History Neurological: Parkinson's disease Cardiovascular: AFIB, aortic stenosis (moderate), hypertension, syncope Renal: benign prost hyperplasia Surgical History Surgical History: unobtainable (hemorrhoidectomy), hernia repair-inguinal (right ) Family History Relations & Conditions If Any SON (atrial fibrillation). FATHER (colon cancer). Psychosocial History Where Do You Live? Home Who Do You Live With? child (SON) Smoking Status: Former Smoker ETOH Use: 6 Illicit Drug Use: UTD Karnofsky Performance Scale: 20 Living Will? unknown Power of Commercial Loan Administrator/HCP? yes Name of POA/HCP: Irwin Alexandra Functional Ability ADLs Needs Assist: dressing, eating, toileting, bathing. Ambulation: non-ambulatory IADLs Needs Assist: shopping, housework, finances, food prep, telephone, transportation, medication admin. Employment History Employment: Retired Retired? yes Exam & Diagnostic Data Last 24 Hrs of Vitals/I&Os: Vital Signs Date Time Temp Pulse Resp B/P B/P Pulse O2 O2 Flow FiO2 Mean Ox Delivery Rate 04/13 0704 97.7 114 24 138/70 97 Nasal 2.0L Cannula 04/13 0000 Nasal 2.0L Cannula 04/12 2209 99.6 90 20 130/80 96 04/12 2029 123 126/68 04/12 1913 Nasal 2.0L Cannula 04/12 1600 97 Nasal Cannula 04/12 1443 98.2 89 20 130/76 97 Nasal 2.0L Cannula Intake & Output 04/13 1600 04/13 0800 04/13 0000 Intake Total 200 680 Output Total Balance 200 680 Intake, Oral 200 680 Patient 176 lb Weight Physical Exam: elderly male in bed, NAD HEENT - NCAT, anicteric sclera Neck - supple, FROM Lungs - rhonchi throughout CV - irregular, +S1, S2 Abd - soft, NT, ND Extr - +edema Neuro - awake, not oriented Diagnostic Data Lab/Micro/Pathology Results: Laboratory Tests 04/13/18 0608: PT 19.3 H, INR 1.76 H 04/12/18 0930: APTT 67 H Assessment/Plan Assessment 87M w/ advanced PD, dementia, other medical problems - now with pulmonary embolism in setting of (R) axillary mass most likely representing malignant disease. It is reasonable to pursue a comfort prioritized plan of care with eventual transition to comfort-only care. To that end defer any further testing or interventions except those that promote the patient's comfort. At some point, it may be reasonable to discontinue anticoagulation - which at this time may be helping to reduce further developement or worsening of embolic disease. Should there be any signs of bleeding, however, this should be discontinued and comfort -only care pursued. Likewise it reasonbable to no longer escalate care and to eliminate other medications not contibuting to patient's comfort - that being said - any further deterioratioration in the patient's condition should be addressed by pursuing comfort-only care. As the patient is unable to care for himself, transition to LTC - with an initial rehabilitative stay is reasonable. Once patient has completed STR, consideration may be given to engaging with hospice services. Throughout his stay until that time, it is important to recognize that the patient's goals are comfort-prioritized. Consult Acknowledgment - Thank you for your consult request.
[2018-04-13 14:51] VITALS: BP 100/60
--- NOTE | 2018-04-13 21:22 | PN- Cardiology ---
Subjective Subjective: * Patient is doing well. No complaints. * Hemodynamically stable in atrial fibrillation. * potassium is 3.4 Objective Vital Signs and I&Os Vital Signs Date Time Temp Pulse Resp B/P B/P Pulse O2 O2 Flow FiO2 Mean Ox Delivery Rate 04/13 1451 98.6 88 20 100/60 97 Nasal 2.0L Cannula 04/13 1018 114 138/70 04/13 1017 114 138/70 04/13 0800 97 Nasal 2.0L Cannula 04/13 0704 97.7 114 24 138/70 97 Nasal 2.0L Cannula 04/13 0000 Nasal 2.0L Cannula 04/12 2209 99.6 90 20 130/80 96 Intake & Output 04/13 1600 04/13 0800 04/13 0000 04/12 1600 04/12 0800 04/12 0000 Intake Total 310 837 116 0184 420 314 Output Total 350 Balance 310 348 081 2020 420 -36 Intake, IV 10 194 180 134 Intake, Oral 300 200 680 820 240 180 Number 0 Bowel Movements Output, Urine 350 Patient 176 lb 176 lb 174 lb Weight Physical Exam: General: WD/WN male in NAD; awake and non-verbal HEENT: NC/AT, PERRL, EOMI Neck: no JVD, no carotid bruit Heart: irregularly irregular with 2/6 systolic murmur at the RUSB and LLSB Lungs: clear bilaterally Abdomen: soft, NT, +ve bowel sounds Extremities: no edema Assessment/Plan Assessment/Plan * This patient has recently discovered atrial fibrillation. He was not started on chronic anticoagulation for this illness due to the patient having daily falls. Over the past three weeks this patient's condition has deteriorated to the point that he is bedbound and therefore his risk of falling has decreased. In addition, the patient now has a DVT and multiple PE's and likely cancer which is a hypercoagulable state. As such, chronic anticoagulation is now recommended. It is reasonable to discuss this issue with the patient's son since Neo likely has metastatic cancer and has a very poor quality of life at this point in time. * He is currently in atrial fibrillation. Continue Metoprolol at 25mg BID. Hold only for a systolic less than 90mmHg. * Echo shows increased RV pressures consistent with his PE's. * Replete potassium. Continue telemetry? Yes
[2018-04-13 23:07] VITALS: BP 130/60
[2018-04-14 07:04] VITALS: BP 112/60
--- NOTE | 2018-04-14 09:02 | PN- Housestaff ---
Shahnaz Vinson 04/14/18 0902: Subjective Follow-up For: AMS, PE, DVT Complaints: no complaints Tele-Events Since Last Visit: Renetta eason heart rate 92-106 Subjective: No complaints/no acute events overnight Review of Systems Constitutional: Reports: see HPI. Objective Last 24 Hrs of Vital Signs/I&O Vital Signs Date Time Temp Pulse Resp B/P B/P Pulse O2 O2 Flow FiO2 Mean Ox Delivery Rate 04/14 1600 94 Room Air 04/14 1516 98.7 108 18 112/60 94 04/14 0828 118/74 04/14 0828 118/74 04/14 0704 97.9 91 18 112/60 94 Room Air 04/13 2307 98.1 115 20 130/60 94 Intake & Output 04/14 1600 04/14 0800 04/14 0000 Intake Total 120 Output Total 75 Balance -75 120 Intake, Oral 120 Output, Urine 75 Patient 178 lb Weight Physical Exam General Appearance: Alert, Cooperative Neck: Supple Lymphatic: Rt axillary mass Cardiovascular: Regular Rate, Normal S1, Normal S2, No Murmurs Lungs: Clear to Auscultation, Normal Air Movement Abdomen: Normal Bowel Sounds, Soft, No Tenderness Extremities: No Clubbing, No Cyanosis, No Edema Assessment/Plan Assessment: Patient is an 79-year-old male with history of Parkinson's disease, axillary mass concerning for malignancy, presenting with shortness of breath and altered mental status/unresponsiveness found to have bilateral pulmonary emboli, diffusely throughout the lungs. Vitals: HR 115s, BP stable Problems: 1. Pulmonary embolism 2. Parkinson disease 3. Altered mental state 4.Axillary mass 5. DVT (deep venous thrombosis) 6. Hypokalemia PLAN: * PE/DVT- cont on eliquis for now. * Waiting for discharge to [facility] ([facility]) - insurance authorization is pending * Diet: * Code: DNR/DNI Problem List: 1. Pulmonary embolism 2. Parkinson disease 3. Altered mental state 4. Axillary mass 5. Hypokalemia 6. DVT (deep venous thrombosis) Pain Ratin Pain Location: none Pain Goal: Remain pain free Pain Plan: follow pain pathway Tomorrow's Labs & Rationales: not needed Herberth Arellano 04/14/18 1634: Attending MD Review Statement Attending Statement Attending MD Statement: examined this patient, discuss w/resident/PA/BOOT TURNER, agreed w/resident/PA/BOOT TURNER, discussed with family, reviewed EMR data (avail), discussed with nursing, discussed with case mgmt Attending Assessment/Plan: PE/DVT- cont on eliquis for now. Pt awaiting discharge to [facility] - insurance authorization pending dw/ case management. they will let us know when it is authorized. d/w pts family at bedside the care plan. goal is to keep pt comfortable.
[2018-04-14 15:16] VITALS: BP 112/60
[2018-04-14 22:05] VITALS: BP 116/74
[2018-04-15 06:47] VITALS: BP 142/78
[2018-04-15 08:06] LABS: ABSOLUTE BASOPHIL COUNT 0 /CUMM (0.0-0.2); ABSOLUTE EOSINOPHIL COUNT 0.1 /CUMM (0.0-0.7); ABSOLUTE GRANULOCYTE CT 5.4 /CUMM (1.4-6.5); ABSOLUTE LYMPH COUNT 1.1 /CUMM (1.2-3.4); ABSOLUTE MONOCYTE COUNT 0.5 /CUMM (0.10-0.60); BASOPHIL % 0.4 % (0.0-2.0); EOSINOPHIL % 1.6 % (0-5); HEMATOCRIT 31.7 % (42-52); MEAN CORPUSCULAR HGB 28.8 PG (27.0-31.0); MEAN CORPUSCULAR HGB CONC 33.4 G/DL (33.0-37.0); MEAN CORPUSCULAR VOLUME 86.2 FL (80.0-94.0); MEAN PLATELET VOLUME 8.2 FL (7.4-10.4); PLATELET COUNT 266 /CUMM (130-400); RBC DISTRIBUTION WIDTH 13.4 % (11.5-14.5); RED BLOOD CELL CT 3.67 /CUMM (4.70-6.10); WHITE BLOOD CELL COUNT 7.2 /CUMM (4.8-10.8)
[2018-04-15 08:23] LABS: PT 20.1 SEC (9.4-12.5)
--- NOTE | 2018-04-15 08:31 | PN- Housestaff ---
Jesus FORMAN,Kiara 04/15/18 0830: Subjective Follow-up For: Bilateral pulmonary embolism/DVT Tele-Events Since Last Visit: Normal sinus rhythm Subjective: Patient seen and examined at bedside. He was sitting comfortably on his bed and was having his breakfast. He denied any new complaints. He denied shortness of breath, cough, numbness, tingling sensation, chest pain. Review of Systems Constitutional: Reports: no symptoms. Objective Last 24 Hrs of Vital Signs/I&O Vital Signs Date Time Temp Pulse Resp B/P B/P Pulse O2 O2 Flow FiO2 Mean Ox Delivery Rate 04/15 1416 97.9 84 20 120/70 92 Room Air 04/15 0908 95 128/70 04/15 0908 95 128/70 04/15 0800 Room Air 04/15 0647 97.5 91 20 142/78 92 Room Air 04/14 2205 98.3 118 18 116/74 94 Room Air 04/14 1600 94 Room Air 04/14 1516 98.7 108 18 112/60 94 Intake & Output 04/15 1600 04/15 0800 04/15 0000 Intake Total 560 Output Total Balance 560 Intake, Oral 560 Number 1 Bowel Movements Patient 179 lb Weight Weight Bed scale Measurement Method Physical Exam General Appearance: Alert, Cooperative, No Acute Distress Cardiovascular: Normal S1, Normal S2, No Murmurs Lungs: Clear to Auscultation Abdomen: Soft Current Medications: Current Medications Sig/Lizandro Start time Last Medication Dose Route Stop Time Status Admin Apixaban 10 MG BID 04/12 957 AC 04/15 PO 906 Carbidopa/Levodopa 1 TAB TID 04/13 900 AC 04/15 PO 906 Finasteride 5 MG DAILY 04/13 900 AC 04/15 PO 09 Metoprolol Succinate 25 MG DAILY 04/13 900 AC 04/15 PO 09 Tamsulosin HCl 0.4 MG DAILY 04/13 900 AC 04/15 PO 0908 Last 24 Hrs of Lab/Angelo Results Last 24 Hrs of Labs/Mics: Laboratory Tests 04/15/18 0655: Anion Gap 9, Estimated GFR > 60, BUN/Creatinine Ratio 16.7, PT 20.1 H, INR 1.83 H, CBC w Diff NO MAN DIFF REQ, RBC 3.67 L, MCV 86.2, MCH 28.8, MCHC 33.4, RDW 13.4, MPV 8.2, Gran % 75.0, Lymphocytes % 15.6 L, Monocytes % 7.4, Eosinophils % 1.6, Basophils % 0.4, Absolute Granulocytes 5.4, Absolute Lymphocytes 1.1 L, Absolute Monocytes 0.5, Absolute Eosinophils 0.1, Absolute Basophils 0 Assessment/Plan Assessment: Patient is an 79-year-old male with history of Parkinson's disease, axillary mass concerning for malignancy, presenting with shortness of breath and altered mental status/unresponsiveness found to have bilateral pulmonary emboli, diffusely throughout the lungs. 1. Pulmonary emboli calf veins daily for a week, to continue this dose for a total of a week, and then switch to 5 mg p.o. twice daily 2. DVTs twice daily afterwards 3. Atrial fibrillation --patient already on Eliquis, continue anticoagulation 4. Altered mental status 5. Axillary mass concerning for malignancy abdomen and pelvis possibly representing malignancy concern hospital nonessential therapies, to maximize patient's comfort 6. Hypokalemia 7. Sacral and heel wounds (present on admission) B/l heels noted with healed blistered area approximately 2cm each, sharp excisional removal of devitalized epidermis with use of forceps & scissors revealed intact epidermis underneath. Coccyx noted with multiple areas of skin alteration presenting clinicaly as DTI evolving 2x3 cm, 1x3 cm and 1x0.5cm dark discoloration and murky fluid-filled blistering flush at surface. Monitor B/L heels each night and prn, offload feet on pillow for 100% pressure relief. Apply moisture barrier each night and prn to coccyx. Every hour repositioning and group 2 APM. 8. Bacteremia (CONTAMINATION) positive cocci in pairs, alpha strep; second cultures negative after 1 day of growth Plan for today-awaiting short-term rehab bed for him. Problem List: 1. Pulmonary embolism Pain Ratin Pain Location: none Pain Goal: Remain pain free Pain Plan: tylenol Tomorrow's Labs & Rationales: none Herberth Arellano 04/15/18 1545: Attending Review Statement Attending Statement Attending MD Statement: examined this patient, discuss w/resident/PA/TURBOGENERATOR OPERATOR, agreed w/resident/PA/TURBOGENERATOR OPERATOR, reviewed EMR data (avail) Attending Assessment/Plan: pt awaiting authorization from insurance for placement in SNF. Hypokalemia resolved. stable.
[2018-04-15 14:16] VITALS: BP 120/70
--- NOTE | 2018-04-16 06:56 | PN- Housestaff ---
Jose Raul Mcmillan 04/16/18 0655: Subjective Follow-up For: Altered mental status, pulmonary emboli, DVT Subjective: Patient seen resting comfortably in the bed. Denies any pain at rest, and no acute events overnight. The patient does report palpitations, but denies chest pain or shortness of breath. Patient is oriented to person and place, but confused as to the year. The patient does complain of pain in the right axilla, secondary to the mass, upon moving his right arm. Review of Systems Constitutional: Denies: chills, fever. EENTM: Denies: visual changes. Cardiovascular: Reports: palpitations. Denies: chest pain, orthopena, peripheral edema. Respiratory: Denies: cough, short of breath, wheezing. Gastrointestinal: Denies: abdominal pain, nausea, vomiting. Objective Last 24 Hrs of Vital Signs/I&O Vital Signs Date Time Temp Pulse Resp B/P B/P Pulse O2 O2 Flow FiO2 Mean Ox Delivery Rate 04/15 1416 97.9 84 20 120/70 92 Room Air 04/15 0908 95 128/70 04/15 0908 95 128/70 04/15 0800 Room Air Intake & Output 04/16 0800 04/16 0000 04/15 1600 Intake Total 300 320 Output Total 225 Balance 75 320 Intake, Oral 300 320 Output, Urine 225 Physical Exam General Appearance: Alert, Cooperative, No Acute Distress, Patient oriented to person and place HEENT: PERRLA (Pupils constricted), EOMI Neck: Supple, No JVD, No thryomegaly, +2 Carotid Pulse wo Bruit Lymphatic: Axillary nl (Large mass R axilla, tender) Cardiovascular: Regular Rate, Normal S1, Normal S2, Systolic murmur 3/6 appreciated Lungs: Clear to Auscultation, Normal Air Movement Abdomen: Soft, No Tenderness Extremities: No Edema, No Tenderness/Swelling Current Medications: Current Medications Sig/Lizandro Start time Last Medication Dose Route Stop Time Status Admin Apixaban 10 MG BID 04/12 957 AC 04/15 PO 2123 Carbidopa/Levodopa 1 TAB TID 04/13 900 AC 04/15 PO 2123 Finasteride 5 MG DAILY 04/13 900 AC 04/15 PO 907 Metoprolol Succinate 25 MG DAILY 04/13 900 AC 04/15 PO 907 Tamsulosin HCl 0.4 MG DAILY 04/13 900 AC 04/15 PO 0908 Assessment/Plan Assessment: Patient is an 79-year-old male with history of Parkinson's disease, axillary mass concerning for malignancy, presenting with shortness of breath and altered mental status/unresponsiveness found to have bilateral pulmonary emboli, diffusely throughout the lungs. 1. Pulmonary emboli for a total of a week (2 days remaining after today), and then switch to 5 mg p.o. twice daily starting on 04/19 2. DVTs calf veins twice daily afterwards (04/19) 3. Atrial fibrillation 4. Altered mental status 5. Axillary mass concerning for malignancy abdomen and pelvis possibly representing malignancy concern hospital nonessential therapies, to maximize patient's comfort 6. Hypokalemia (resolved) 7. Sacral and heel wounds (present on admission) B/l heels noted with healed blistered area approximately 2cm each, sharp excisional removal of devitalized epidermis with use of forceps & scissors revealed intact epidermis underneath. Coccyx noted with multiple areas of skin alteration presenting clinicaly as DTI evolving 2x3 cm, 1x3 cm and 1x0.5cm dark discoloration and murky fluid-filled blistering flush at surface. Monitor B/L heels each night and prn, offload feet on pillow for 100% pressure relief. Apply moisture barrier each night and prn to coccyx. Every hour repositioning and group 2 APM. 8. Bacteremia (CONTAMINATION) positive cocci in pairs, alpha strep; second cultures negative after 1 day of growth clinical symptoms of infection. Discussed with attending. Problem List: 1. DVT (deep venous thrombosis) 2. Axillary mass 3. Parkinson disease 4. Pulmonary embolism Pain Ratin (Upon moving R arm) Pain Location: Right axilla Pain Goal: Pain 4 or less Pain Plan: TYLENOL, PERCOCET Tomorrow's Labs & Rationales: Patient for D/C Brunilda Fontaine MD 04/16/18 0950: Attending MD Review Statement Attending Statement Attending MD Statement: examined this patient, discuss w/resident/PA/OSTEOPATHIC MEDICINE TEACHER, agreed w/resident/PA/OSTEOPATHIC MEDICINE TEACHER, reviewed EMR data (avail), discussed with nursing, discussed with case mgmt, reviewed images Attending Assessment/Plan: Patient is eating his breakfast. He is an 87-year-old male with a past medical history of Parkinson's disease who is here with bilateral PE, right axillary mass presumed metastatic in origin. The family is pursuing no diagnosis and right now we have him anticoagulated with Eliquis. We are looking for a rehabilitation bed, he is DNR/DNI and I'll speak to the family about questionable do not rehospitalize.
[2018-04-16 07:19] VITALS: BP 142/64
[2018-04-16 15:17] VITALS: BP 102/58
[2018-04-16 15:30] VITALS: BP 102/58
== END 2018-04-16 17:17 | DRG 176 ==
LOC: DELPENDDIS → ERH 19:37 → ERHI 23:53 → 1NO 23:53 → ERHI 04-11 00:13 → 1NO 04-11 00:13 → ERH 04-11 00:13 → ENRESERV 04-11 01:47 → ERHI 04-11 02:30 → 1NO 04-11 02:30 → ENPENDDIS 04-13 11:10 → 1NO 04-13 19:30 → ENPENDDIS 04-16 15:13 → 1NO 04-16 17:17
PROVIDERS: Internal Medicine; Internal Medicine Endocrinology, Diabetes & Metabolism; Physician Assistant Medical; Student in an Organized Health Care Education/Training Program
DX: I26.99 Other pulmonary embolism without acute cor pulmonale (principal); E44.1 Mild protein-calorie malnutrition; C34.92 Malignant neoplasm of unspecified part of left bronchus or lung; C34.91 Malignant neoplasm of unspecified part of right bronchus or lung; I82.493 Acute embolism and thrombosis of other specified deep vein of lower extremity, bilateral; Z51.5 Encounter for palliative care; G20 Parkinson's disease; I48.0 Paroxysmal atrial fibrillation; Z91.81 History of falling; I10 Essential (primary) hypertension; E86.0 Dehydration; E87.6 Hypokalemia; R22.2 Localized swelling, mass and lump, trunk; R53.83 Other fatigue; L89.151 Pressure ulcer of sacral region, stage 1; Z66 Do not resuscitate; I35.0 Nonrheumatic aortic (valve) stenosis; L89.629 Pressure ulcer of left heel, unspecified stage; L89.619 Pressure ulcer of right heel, unspecified stage; R41.82 Altered mental status, unspecified; B95.0 Streptococcus, group A, as the cause of diseases classified elsewhere; B95.8 Unspecified staphylococcus as the cause of diseases classified elsewhere; Z74.01 Bed confinement status; Z75.1 Person awaiting admission to adequate facility elsewhere
CPT/HCPCS: 1NP; ERO; 36415; 36592; 71045; 74177; 80307; 81001; 82436; 87040; 87086; 87147; 93005; 93010; 93306; 93970; 96374; 96375; 97110-GO; 97112-GO; 97116-GO; 97162-GP; 97530-GO; 99291; G0480; J0131; J0696; J1644; J2310